=== PATIENT | male | born 1990 | race Caucasian/White ===

== ENCOUNTER 2021-07-26 13:05 | Inpatient (IN) | payer MEDICAID, OTHER ==
[~2021-07-26] VITALS: Ht 182.9 cm; Wt 95.8 kg
[2021-07-26] MEDS ORDERED: ONDANSETRON HCL 4 MG/2 ML VIAL IV ONE ×2 (13:15→17:45)
[2021-07-26] MEDS ORDERED: MORPHINE SULFATE 4 MG/ML SYR/VIAL IV ONE ×2 (13:15→17:45)
[2021-07-26] MEDS ORDERED: PANTOPRAZOLE 40 MG/10 ML VIAL INJ IV ONE (13:15)
[2021-07-26] MEDS ORDERED: SODIUM CHLORIDE 0.9% 1,000 ML IVB ONE (13:15)
[2021-07-26 14:06] LABS: Basophils # (auto) 0 10 ^3/uL (0-0.2); Basophils % (auto) 0.3 % (0.0-2.0); Eosinophils # (auto) 0.2 10 ^3/uL (0-0.8); Eosinophils % (auto) 2.3 % (0.0-7.0); Hematocrit 49.1 % (41.0-53.0); Hemoglobin 16.5 g/dL (13.5-17.5); Lymphocytes # (auto) 1.9 10 ^3/uL (0.4-5.4); Lymphocytes % (auto) 18.1 % (10.0-50.0); Mean Corpuscular Hemoglobin 30.5 pg (28.0-32.0); Mean Corpuscular Hgb Conc. 33.7 g/dL (32.0-36.0); Mean Corpuscular Volume 90.4 fL (80.0-100.0); Monocytes # (auto) 0.7 10 ^3/uL (0-1.3); Neutrophils # (auto) 7.7 10 ^3/uL (1.6-8.6); Neutrophils % (auto) 72.3 % (37.0-80.0); Nucleated Red Blood Cells % 0.2 %; Red Blood Cells 5.43 10^6/uL (4.5-5.90); Red Cell Distribution Width 13.9 % (11.8-14.3); White Blood Cell 10.6 10^3/uL (4.4-10.8)
[2021-07-26 14:42] LABS: Amylase 70 U/L (25-115); Blood Alcohol < 3.0 mg/dL (0-5); Lipase 521 U/L (73-393)
[2021-07-26 15:12] LABS: Sodium 136 mmol/L (136-145)
[2021-07-26 15:13] LABS: Alanine Aminotransferase 51 U/L (16-61); Albumin 4.2 g/dL (3.4-5.0); Alkaline Phosphatase 105 U/L (45-117); Anion Gap 9 (5-15); Aspartate Aminotransferase 35 U/L (15-37); BUN/Creatinine Ratio 9.8; Bilirubin, Total 0.8 mg/dL (0.2-1.0); Blood Urea Nitrogen 10 mg/dL (7-18); Calcium 9.7 mg/dL (8.5-10.1); Carbon Dioxide 24 mmol/L (21-32); Chloride 103 mmol/L (98-107); GFR African American 109 mL/min; GFR Non-African American 90 mL/min; Glucose 112 mg/dL (74-106); Potassium 4.6 mmol/L (3.5-5.1); Total Protein 8.1 g/dL (6.4-8.2)
[2021-07-26 15:17] LABS: Urine Bacteria FEW /hpf (None Seen); Urine Blood Negative /uL (Negative); Urine Hyaline Cast FEW /lpf (0 - 2); Urine Mucus FEW (None Seen); Urine Specific Gravity 1.018 (1.001-1.035); Urine WBC 5 /hpf (0 - 3)
[2021-07-26] MEDS ORDERED: ACETAMINOPHEN 325 MG TAB PO PRN (18:15)
[2021-07-26] MEDS ORDERED: DOCUSATE SOD 100 MG CAP PO PRN (18:15)
[2021-07-26] MEDS ORDERED: SODIUM CHLORIDE 0.9% 1,000 ML IV SCH (18:15)
[2021-07-26] MEDS ORDERED: LORazepam 2MG/ML-1ML VIAL IV PRN (18:45)
[2021-07-26] MEDS ORDERED: THIAMINE 100mg/ml INJ (200mg/2ml VIAL) IV ONE (18:45)
[2021-07-26] MEDS ORDERED: FOLIC ACID 1 MG, MULTIPLE VITAMIN 10 ML, MAGNESIUM SULF SDV 50% 8 MEQ, THIAMINE INJ 100... INJ ONE ×5 (19:15)
[2021-07-26] MEDS: ONDANSETRON HCL 4 MG/2 ML VIAL IV PRN (20:28)
[2021-07-26] MEDS: MORPHINE SULFATE INJECTION 2 MG/ML SYRG IV PRN (22:44)
[2021-07-27] MEDS: SODIUM CHLORIDE 0.9% 1,000 ML IV SCH ×2 (00:45→09:00)
[2021-07-27] MEDS: MORPHINE SULFATE INJECTION 2 MG/ML SYRG IV PRN ×5 (03:35→21:54)
[2021-07-27 05:00] VITALS: BP 147/99
[2021-07-27 05:14] LABS: Basophils # (auto) 0 10 ^3/uL (0-0.2); Basophils % (auto) 0.3 % (0.0-2.0); Eosinophils # (auto) 0.2 10 ^3/uL (0-0.8); Eosinophils % (auto) 1.6 % (0.0-7.0); Hematocrit 40.9 % (41.0-53.0); Hemoglobin 14.3 g/dL (13.5-17.5); Lymphocytes # (auto) 1.8 10 ^3/uL (0.4-5.4); Lymphocytes % (auto) 18.5 % (10.0-50.0); Mean Corpuscular Hemoglobin 31.4 pg (28.0-32.0); Mean Corpuscular Volume 89.6 fL (80.0-100.0); Monocytes # (auto) 0.9 10 ^3/uL (0-1.3); Neutrophils # (auto) 6.9 10 ^3/uL (1.6-8.6); Neutrophils % (auto) 70.6 % (37.0-80.0); Nucleated Red Blood Cells % 0.1 %; Red Blood Cells 4.56 10^6/uL (4.5-5.90); Red Cell Distribution Width 13.5 % (11.8-14.3); White Blood Cell 9.7 10^3/uL (4.4-10.8)
[2021-07-27 05:33] LABS: Potassium 4.1 mmol/L (3.5-5.1)
[2021-07-27 05:38] LABS: Albumin 3.5 g/dL (3.4-5.0); BUN/Creatinine Ratio 10.1; Bilirubin, Total 0.9 mg/dL (0.2-1.0); Calcium 8.4 mg/dL (8.5-10.1); Total Protein 6.8 g/dL (6.4-8.2)
[2021-07-27 09:05] VITALS: BP 145/91
[2021-07-27] MEDS: FOLIC ACID 1 MG TAB PO SCH (10:00)
[2021-07-27] MEDS: THIAMINE HCL 100 MG TAB PO SCH (10:00)
[2021-07-27] MEDS: ENOXAPARIN SOD 40 MG/0.4 ML SYRINGE SC SCH (10:00)
[2021-07-27] MEDS: HYDROcodone-ACET 5/325MG TAB PO PRN (12:09)
[2021-07-27 12:37] VITALS: BP 150/98
[2021-07-27] MEDS: LACTATED RINGER'S 1,000 ML IV SCH (14:00)
[2021-07-27] MEDS ORDERED: hydrALAZINE HCL 20 MG/ML VL IV PRN (14:00)
[2021-07-27 16:49] VITALS: BP 143/91
[2021-07-27] MEDS: FAMOTIDINE (10MG/ML) 2ML VL IV SCH (21:42)
[2021-07-27 22:00] VITALS: BP 119/69
[2021-07-28] MEDS: MORPHINE SULFATE INJECTION 2 MG/ML SYRG IV PRN ×2 (01:54→17:48)
[2021-07-28 05:00] VITALS: BP 144/98
[2021-07-28 09:00] VITALS: BP_SYST 101; BP_SYST 147; BP_DIAS 52; BP_DIAS 88
[2021-07-28 09:01] LABS: Magnesium 2.5 mg/dL (1.6-2.6); Potassium 4.5 mmol/L (3.5-5.1)
[2021-07-28] MEDS: ENOXAPARIN SOD 40 MG/0.4 ML SYRINGE SC SCH (10:00)
[2021-07-28] MEDS: MULTIPLE VITAMINS W/ MINERALS TAB PO SCH (10:00)
[2021-07-28] MEDS: FOLIC ACID 1 MG TAB PO SCH (10:00)
[2021-07-28] MEDS: FAMOTIDINE (10MG/ML) 2ML VL IV SCH ×2 (10:00→22:13)
[2021-07-28] MEDS: THIAMINE HCL 100 MG TAB PO SCH (10:00)
[2021-07-28] MEDS: HYDROcodone-ACET 5/325MG TAB PO PRN ×2 (10:48→23:57)
[2021-07-28 12:49] VITALS: BP 121/95
[2021-07-28] MEDS: LACTATED RINGER'S 1,000 ML IV SCH ×2 (14:00)
[2021-07-28 16:51] VITALS: BP 144/90
[2021-07-28 22:00] VITALS: BP 135/75
[2021-07-29 05:00] VITALS: BP 141/87
[2021-07-29] MEDS: LACTATED RINGER'S 1,000 ML IV SCH (05:35)
[2021-07-29 09:00] VITALS: BP 145/95
[2021-07-29] MEDS ORDERED: ERGOCALCIFEROL 50,000 UNIT(1.25MG) CAP PO SCH (09:45)
[2021-07-29] MEDS ORDERED: CHOLECALCIFEROL (VITD3) 2,000 UNIT CAP/TAB PO SCH (10:00)
[2021-07-29] MEDS: THIAMINE HCL 100 MG TAB PO SCH (10:00)
[2021-07-29] MEDS: FOLIC ACID 1 MG TAB PO SCH (10:00)
[2021-07-29] MEDS: ENOXAPARIN SOD 40 MG/0.4 ML SYRINGE SC SCH (10:00)
[2021-07-29] MEDS: FAMOTIDINE (10MG/ML) 2ML VL IV SCH (10:00)
[2021-07-29] MEDS: MULTIPLE VITAMINS W/ MINERALS TAB PO SCH (10:00)
[2021-07-29] MEDS: MORPHINE SULFATE INJECTION 2 MG/ML SYRG IV PRN (10:10)
[2021-07-29] MEDS: ONDANSETRON HCL 4 MG/2 ML VIAL IV PRN (10:10)
[2021-07-29] MEDS ORDERED: ERGOCALCIFEROL 50,000 UNIT(1.25MG) CAP PO ONE (11:30)
[2021-07-29] MEDS ORDERED: CHOL20007 PO (11:33)
[2021-07-29 13:00] VITALS: BP 168/91
[2021-07-29 16:29] VITALS: BP_SYST 168
[2021-07-29 16:51] VITALS: BP 169/101
[2021-07-29 17:50] VITALS: BP 139/87
== END 2021-07-29 19:45 | disposition home or self-care (01) | DRG 282 ==
LOC: ER 13:05 → OVERFLOW 18:13 → WEST WING 20:35
PROVIDERS: ADMIT Internal Medicine; ATTEND Internal Medicine
DX: K85.20 Alcohol induced acute pancreatitis without necrosis or infection (principal); E55.9 Vitamin D deficiency, unspecified; E66.9 Obesity, unspecified; F10.10 Alcohol abuse, uncomplicated; I10 Essential (primary) hypertension; Z20.822 Contact with and (suspected) exposure to COVID-19; Z68.28 Body mass index [BMI] 28.0-28.9, adult; Z71.41 Alcohol abuse counseling and surveillance of alcoholic
CPT/HCPCS: 36415; 74176; 80053; 80061; 80320; 81001; 82150; 82306; 83036; 83690; 83735; 84132; 84443; 84478; 84484; 85025; 87086; 87426; 96361; 96365; 96375; 96376; C9113; G0378; J2405; J3490

== ENCOUNTER 2021-09-01 04:07 | Inpatient (IN) | payer MEDICAID ==
[~2021-09-01] VITALS: Ht 185.4 cm; Wt 196.0 kg
[2021-09-01] MEDS ORDERED: ONDANSETRON HCL 4 MG/2 ML VIAL IV ONE ×2 (05:30→09:45)
[2021-09-01] MEDS ORDERED: HYDROmorphone HCL 2 MG/ML VL IV ONE ×2 (05:30→09:45)
[2021-09-01 05:41] LABS: Basophils # (auto) 0 10 ^3/uL (0-0.2); Basophils % (auto) 0.3 % (0.0-2.0); Eosinophils # (auto) 0.2 10 ^3/uL (0-0.8); Eosinophils % (auto) 2.2 % (0.0-7.0); Hematocrit 42.8 % (41.0-53.0); Hemoglobin 14.9 g/dL (13.5-17.5); Lymphocytes # (auto) 2.5 10 ^3/uL (0.4-5.4); Lymphocytes % (auto) 28.3 % (10.0-50.0); Mean Corpuscular Hemoglobin 30.7 pg (28.0-32.0); Mean Corpuscular Hgb Conc. 34.9 g/dL (32.0-36.0); Mean Corpuscular Volume 87.9 fL (80.0-100.0); Monocytes # (auto) 0.8 10 ^3/uL (0-1.3); Monocytes % (auto) 9.2 % (0.0-12.0); Neutrophils # (auto) 5.2 10 ^3/uL (1.6-8.6); Nucleated Red Blood Cells % 0.2 %; Red Blood Cells 4.86 10^6/uL (4.5-5.90); Red Cell Distribution Width 13.8 % (11.8-14.3); White Blood Cell 8.8 10^3/uL (4.4-10.8)
[2021-09-01 06:02] LABS: Potassium 4.5 mmol/L (3.5-5.1)
[2021-09-01 06:07] LABS: Albumin 3.8 g/dL (3.4-5.0); Calcium 9.3 mg/dL (8.5-10.1); Magnesium 2.6 mg/dL (1.6-2.6)
[2021-09-01 06:10] LABS: Bilirubin, Total 0.9 mg/dL (0.2-1.0); Total Protein 7.7 g/dL (6.4-8.2)
[2021-09-01 06:15] LABS: Urine Bacteria NONE SEEN /hpf (None Seen); Urine Blood Negative /uL (Negative); Urine Specific Gravity 1.017 (1.001-1.035); Urine WBC 1 /hpf (0 - 3)
[2021-09-01] MEDS ORDERED: SODIUM CHLORIDE 0.9% 1,000 ML IVB ONE (13:00)
[2021-09-01] MEDS ORDERED: ONDANSETRON HCL 4 MG/2 ML VIAL IV PRN (14:30)
[2021-09-01 14:58] LABS: Cholesterol 200 mg/dL (< 200)
[2021-09-01] MEDS ORDERED: SODIUM CHLORIDE 0.9% 2,000 ML IV ONE (15:00)
[2021-09-01] MEDS ORDERED: MORPHINE SULFATE INJECTION 2 MG/ML SYRG IV PRN (15:00)
[2021-09-01] MEDS ORDERED: LORazepam 2MG/ML-1ML VIAL IV PRN (15:00)
[2021-09-01 15:01] LABS: HDL Cholesterol 51 mg/dL (40-59); LDL Cholesterol 112 mg/dL (< 100); Triglycerides 277 mg/dL (< 150)
[2021-09-01 15:03] LABS: Alcohol, Urine < 3.0 mg/dL (0-10); Amphetamine Screen, Urine NEGATIVE (NEGATIVE); Barbiturate Scree,Urine NEGATIVE (NEGATIVE); Benzodiazephine Screen, Urine NEGATIVE (NEGATIVE); Cannabinoid Screen, Urine NEGATIVE (NEGATIVE); Cocaine Screen, Urine NEGATIVE (NEGATIVE); Opiate Scree,Urine NEGATIVE (NEGATIVE); Phencyclidine Screen, Urine NEGATIVE (NEGATIVE)
[2021-09-01 15:20] LABS: INR 1.03 (0.9-1.15)
[2021-09-01] MEDS: MORPHINE SULFATE 4 MG/ML SYR/VIAL IV PRN ×3 (15:46→22:37)
[2021-09-01] MEDS: FOLIC ACID 1 MG, MULTIPLE VITAMIN 10 ML, THIAMINE INJ 100 MG in SODIUM CHLORIDE 0.9% 1,... INJ SCH (16:16)
[2021-09-01 18:01] VITALS: BP 153/96
[2021-09-01] MEDS ORDERED: hydrALAZINE HCL 20 MG/ML VL IV PRN (18:30)
[2021-09-01] MEDS ORDERED: CHOL20007 PO (18:36)
[2021-09-01 22:00] VITALS: BP 144/94
[2021-09-02] MEDS: MORPHINE SULFATE 4 MG/ML SYR/VIAL IV PRN ×2 (02:31→07:30)
[2021-09-02 05:00] VITALS: BP 138/96
[2021-09-02 05:15] LABS: Basophils # (auto) 0 10 ^3/uL (0-0.2); Basophils % (auto) 0.2 % (0.0-2.0); Eosinophils # (auto) 0.1 10 ^3/uL (0-0.8); Eosinophils % (auto) 0.8 % (0.0-7.0); Hematocrit 40.5 % (41.0-53.0); Hemoglobin 14.3 g/dL (13.5-17.5); Lymphocytes # (auto) 1.3 10 ^3/uL (0.4-5.4); Lymphocytes % (auto) 12.5 % (10.0-50.0); Mean Corpuscular Hemoglobin 31.1 pg (28.0-32.0); Mean Corpuscular Hgb Conc. 35.3 g/dL (32.0-36.0); Mean Corpuscular Volume 88.1 fL (80.0-100.0); Monocytes # (auto) 0.7 10 ^3/uL (0-1.3); Monocytes % (auto) 6.8 % (0.0-12.0); Neutrophils # (auto) 8.5 10 ^3/uL (1.6-8.6); Neutrophils % (auto) 79.7 % (37.0-80.0); Nucleated Red Blood Cells % 0.1 %; Red Cell Distribution Width 13.7 % (11.8-14.3); White Blood Cell 10.6 10^3/uL (4.4-10.8)
[2021-09-02 05:30] LABS: Albumin 3.5 g/dL (3.4-5.0); Calcium 8.8 mg/dL (8.5-10.1); Potassium 4.5 mmol/L (3.5-5.1)
[2021-09-02 05:37] LABS: Bilirubin, Total 0.8 mg/dL (0.2-1.0); Total Protein 7.1 g/dL (6.4-8.2)
[2021-09-02 06:38] LABS: BUN/Creatinine Ratio 8.1
[2021-09-02 09:00] VITALS: BP 134/82
[2021-09-02] MEDS ORDERED: PANTOPRAZOLE 40 MG/10 ML VIAL INJ IV ONE (11:45)
[2021-09-02] MEDS: SODIUM CHLORIDE 0.9% 1,000 ML IV SCH ×2 (11:45→22:18)
[2021-09-02] MEDS: HYDROcodone-ACET 5/325MG TAB PO PRN ×2 (12:14→18:07)
[2021-09-02 13:00] VITALS: BP 130/79
[2021-09-02] MEDS: FOLIC ACID 1 MG, MULTIPLE VITAMIN 10 ML, THIAMINE INJ 100 MG in SODIUM CHLORIDE 0.9% 1,... INJ SCH (13:41)
[2021-09-02 16:55] VITALS: BP 119/72
[2021-09-02 21:30] VITALS: BP 115/73
[2021-09-03] MEDS: HYDROcodone-ACET 5/325MG TAB PO PRN ×2 (00:59→06:16)
[2021-09-03 05:00] VITALS: BP 116/72
[2021-09-03] MEDS: SODIUM CHLORIDE 0.9% 1,000 ML IV SCH ×4 (06:49→21:59)
[2021-09-03 09:00] VITALS: BP 125/67
[2021-09-03] MEDS: PANTOPRAZOLE 40 MG/10 ML VIAL INJ IV SCH (10:13)
[2021-09-03] MEDS: FOLIC ACID 1 MG, MULTIPLE VITAMIN 10 ML, THIAMINE INJ 100 MG in SODIUM CHLORIDE 0.9% 1,... INJ SCH (12:00)
[2021-09-03 13:00] VITALS: BP 128/81
[2021-09-03 17:00] VITALS: BP 129/72
[2021-09-03 21:32] VITALS: BP 113/82
[2021-09-04] MEDS: SODIUM CHLORIDE 0.9% 1,000 ML IV SCH ×2 (03:45→11:48)
[2021-09-04 04:50] VITALS: BP 117/70
[2021-09-04] MEDS ORDERED: THIA100T5 PO (08:26)
[2021-09-04] MEDS ORDERED: PANT40T PO (08:26)
[2021-09-04] MEDS ORDERED: FOLI1TAB6 PO (08:26)
[2021-09-04] MEDS: PANTOPRAZOLE 40 MG/10 ML VIAL INJ IV SCH (08:58)
[2021-09-04 09:00] VITALS: BP 133/77
[2021-09-04 09:02] VITALS: BP 133/77
== END 2021-09-04 12:38 | disposition home or self-care (01) | DRG 282 ==
LOC: ER 04:07 → OVERFLOW 14:27 → CENTRAL 17:40
PROVIDERS: ADMIT Registered Nurse; ATTEND Family Medicine
DX: K85.20 Alcohol induced acute pancreatitis without necrosis or infection (principal); E86.0 Dehydration; F10.10 Alcohol abuse, uncomplicated; F17.210 Nicotine dependence, cigarettes, uncomplicated; M47.816 Spondylosis without myelopathy or radiculopathy, lumbar region; Z82.49 Family history of ischemic heart disease and other diseases of the circulatory system; Z20.822 Contact with and (suspected) exposure to COVID-19
CPT/HCPCS: 36415; 74176; 80053; 80061; 80307; 81001; 82150; 83690; 83735; 85025; 85610; 96361; 96374; 96375; 96376; C9113; G0378; J2405

== ENCOUNTER 2022-03-30 02:47 | Inpatient (IN) | payer MEDICAID ==
[~2022-03-30] VITALS: Ht 185.4 cm; Wt 103.5 kg
[~2022-03-30 02:47] MED LIST: CHOL20007 PO; FOLI1TAB6 PO; PANT40T PO; THIA100T5 PO
[2022-03-30 03:34] LABS: Basophils # (auto) 0 10 ^3/uL (0-0.2); Basophils % (auto) 0.3 % (0.0-2.0); Eosinophils # (auto) 0.2 10 ^3/uL (0-0.8); Hematocrit 46.9 % (41.0-53.0); Hemoglobin 15.7 g/dL (13.5-17.5); Lymphocytes # (auto) 2.4 10 ^3/uL (0.4-5.4); Lymphocytes % (auto) 21.1 % (10.0-50.0); Mean Corpuscular Hemoglobin 30.5 pg (28.0-32.0); Mean Corpuscular Hgb Conc. 33.5 g/dL (32.0-36.0); Mean Corpuscular Volume 90.9 fL (80.0-100.0); Monocytes % (auto) 9.1 % (0.0-12.0); Neutrophils # (auto) 7.7 10 ^3/uL (1.6-8.6); Neutrophils % (auto) 67.5 % (37.0-80.0); Nucleated Red Blood Cells % 0.1 %; Red Blood Cells 5.15 10^6/uL (4.5-5.90); Red Cell Distribution Width 13.9 % (11.8-14.3); White Blood Cell 11.4 10^3/uL (4.4-10.8)
[2022-03-30 03:39] LABS: Albumin 4.2 g/dL (3.4-5.0); BUN/Creatinine Ratio 14.1; Calcium 9.3 mg/dL (8.5-10.1); Potassium 3.9 mmol/L (3.5-5.1)
[2022-03-30 03:42] LABS: Bilirubin, Total 0.7 mg/dL (0.2-1.0); Total Protein 7.9 g/dL (6.4-8.2)
[2022-03-30] MEDS ORDERED: SODIUM CHLORIDE 0.9% 3,000 ML IV ONE (05:30)
[2022-03-30] MEDS ORDERED: ONDANSETRON HCL 4 MG/2 ML VIAL IV ONE (05:30)
[2022-03-30] MEDS ORDERED: HYDROmorphone HCL 2 MG/ML VL/or syr IV ONE (05:30)
[2022-03-30] MEDS ORDERED: ACETAMINOPHEN 325 MG TAB PO PRN (09:30)
[2022-03-30] MEDS: SODIUM CHLORIDE 0.9% 1,000 ML IV SCH ×3 (09:49→20:04)
[2022-03-30] MEDS: PANTOPRAZOLE 40 MG/10 ML VIAL INJ IV SCH (09:49)
[2022-03-30 10:27] LABS: Urine Bacteria NONE SEEN /hpf (None Seen); Urine Mucus FEW (None Seen); Urine WBC 1 /hpf (0 - 3)
[2022-03-30 10:30] LABS: Urine Blood Trace /uL (Negative); Urine Specific Gravity 1.015 (1.001-1.035)
[2022-03-30 10:46] LABS: Alcohol, Urine < 3.0 mg/dL (0-10); Amphetamine Screen, Urine NEGATIVE (NEGATIVE); Barbiturate Scree,Urine NEGATIVE (NEGATIVE); Benzodiazephine Screen, Urine NEGATIVE (NEGATIVE); Cannabinoid Screen, Urine NEGATIVE (NEGATIVE); Cocaine Screen, Urine NEGATIVE (NEGATIVE); Opiate Scree,Urine NEGATIVE (NEGATIVE); Phencyclidine Screen, Urine NEGATIVE (NEGATIVE)
[2022-03-30] MEDS: HYDROmorphone HCL 2 MG/ML VL/or syr IV PRN ×3 (12:50→21:55)
[2022-03-30 17:00] VITALS: BP 144/88
[2022-03-30 20:00] VITALS: BP 137/76
[2022-03-30 22:00] VITALS: BP 135/76
[2022-03-31] MEDS: HYDROmorphone HCL 2 MG/ML VL/or syr IV PRN ×4 (02:02→20:29)
[2022-03-31 05:00] VITALS: BP 135/93
[2022-03-31] MEDS: SODIUM CHLORIDE 0.9% 1,000 ML IV SCH ×2 (05:53→18:50)
[2022-03-31 06:29] LABS: Basophils # (auto) 0 10 ^3/uL (0-0.2); Basophils % (auto) 0.3 % (0.0-2.0); Eosinophils # (auto) 0.1 10 ^3/uL (0-0.8); Eosinophils % (auto) 0.7 % (0.0-7.0); Hematocrit 42.8 % (41.0-53.0); Lymphocytes # (auto) 1.4 10 ^3/uL (0.4-5.4); Lymphocytes % (auto) 12.6 % (10.0-50.0); Mean Corpuscular Hemoglobin 31.6 pg (28.0-32.0); Mean Corpuscular Hgb Conc. 34.9 g/dL (32.0-36.0); Mean Corpuscular Volume 90.4 fL (80.0-100.0); Monocytes # (auto) 1.1 10 ^3/uL (0-1.3); Monocytes % (auto) 9.6 % (0.0-12.0); Neutrophils # (auto) 8.7 10 ^3/uL (1.6-8.6); Neutrophils % (auto) 76.8 % (37.0-80.0); Red Blood Cells 4.74 10^6/uL (4.5-5.90); Red Cell Distribution Width 13.7 % (11.8-14.3); White Blood Cell 11.3 10^3/uL (4.4-10.8)
[2022-03-31 06:49] LABS: Potassium 4.4 mmol/L (3.5-5.1)
[2022-03-31 07:01] LABS: Albumin 3.7 g/dL (3.4-5.0); Bilirubin, Total 0.8 mg/dL (0.2-1.0); Calcium 8.7 mg/dL (8.5-10.1); Total Protein 7.1 g/dL (6.4-8.2)
[2022-03-31 09:00] VITALS: BP 143/83
[2022-03-31] MEDS: PANTOPRAZOLE 40 MG/10 ML VIAL INJ IV SCH (10:35)
[2022-03-31 13:00] VITALS: BP 141/91
[2022-03-31 17:00] VITALS: BP 130/83
[2022-03-31 20:00] VITALS: BP 136/82
[2022-03-31 22:00] VITALS: BP 136/82
[2022-04-01] MEDS: SODIUM CHLORIDE 0.9% 1,000 ML IV SCH ×4 (01:54→20:53)
[2022-04-01] MEDS: HYDROmorphone HCL 2 MG/ML VL/or syr IV PRN ×3 (04:32→20:50)
[2022-04-01 05:00] VITALS: BP 124/87
[2022-04-01 08:00] VITALS: BP 126/78
[2022-04-01 09:26] VITALS: BP 119/71
[2022-04-01 11:34] LABS: Basophils # (auto) 0 10 ^3/uL (0-0.2); Basophils % (auto) 0.4 % (0.0-2.0); Eosinophils # (auto) 0.2 10 ^3/uL (0-0.8); Eosinophils % (auto) 3.4 % (0.0-7.0); Hematocrit 42.1 % (41.0-53.0); Lymphocytes # (auto) 1.5 10 ^3/uL (0.4-5.4); Lymphocytes % (auto) 20.3 % (10.0-50.0); Mean Corpuscular Hemoglobin 30.7 pg (28.0-32.0); Mean Corpuscular Hgb Conc. 33.2 g/dL (32.0-36.0); Mean Corpuscular Volume 92.5 fL (80.0-100.0); Monocytes # (auto) 0.9 10 ^3/uL (0-1.3); Monocytes % (auto) 12.3 % (0.0-12.0); Neutrophils # (auto) 4.7 10 ^3/uL (1.6-8.6); Neutrophils % (auto) 63.6 % (37.0-80.0); Nucleated Red Blood Cells % 0.1 %; Red Blood Cells 4.55 10^6/uL (4.5-5.90); Red Cell Distribution Width 13.6 % (11.8-14.3); White Blood Cell 7.4 10^3/uL (4.4-10.8)
[2022-04-01 11:53] LABS: Albumin 3.3 g/dL (3.4-5.0); BUN/Creatinine Ratio 9.9; Calcium 8.9 mg/dL (8.5-10.1); Potassium 4.3 mmol/L (3.5-5.1)
[2022-04-01 11:56] LABS: Bilirubin, Total 0.8 mg/dL (0.2-1.0); Total Protein 6.8 g/dL (6.4-8.2)
[2022-04-01 13:00] VITALS: BP 128/88
[2022-04-01] MEDS ORDERED: POLYETHYLENE GLYCOL 17 GM PWDR PO PRN (14:15)
[2022-04-01] MEDS ORDERED: SENNA 8.6 MG TAB PO PRN (14:15)
[2022-04-01 16:44] VITALS: BP 118/81
[2022-04-01] MEDS: SENNA 8.6 MG TAB PO SCH ×2 (21:28→22:00)
[2022-04-01 22:00] VITALS: BP 120/84
[2022-04-02] MEDS: SODIUM CHLORIDE 0.9% 1,000 ML IV SCH ×5 (01:45→21:45)
[2022-04-02] MEDS: HYDROmorphone HCL 2 MG/ML VL/or syr IV PRN ×2 (03:05→12:21)
[2022-04-02 05:00] VITALS: BP 131/96
[2022-04-02 08:49] VITALS: BP 115/74
[2022-04-02 12:49] VITALS: BP 128/86
[2022-04-02 13:33] LABS: Lipase 527 U/L (73-393)
[2022-04-02 13:37] LABS: Cholesterol 188 mg/dL (< 200); HDL Cholesterol 56 mg/dL (40-59); LDL Cholesterol 109 mg/dL (< 100); Triglycerides 130 mg/dL (< 150)
[2022-04-02 16:40] VITALS: BP 118/77
[2022-04-02 22:00] VITALS: BP 126/76
[2022-04-02] MEDS: SENNA 8.6 MG TAB PO SCH (22:02)
[2022-04-03] MEDS: SODIUM CHLORIDE 0.9% 1,000 ML IV SCH ×5 (02:06→22:45)
[2022-04-03] MEDS: HYDROmorphone HCL 2 MG/ML VL/or syr IV PRN ×4 (03:40→21:40)
[2022-04-03 04:54] VITALS: BP 126/85
[2022-04-03 08:40] VITALS: BP 114/82
[2022-04-03 13:00] VITALS: BP 129/88
[2022-04-03 16:48] VITALS: BP 124/85
[2022-04-03] MEDS: ONDANSETRON HCL 4 MG/2 ML VIAL IV PRN (19:11)
[2022-04-03] MEDS: SENNA 8.6 MG TAB PO SCH (21:40)
[2022-04-03 22:00] VITALS: BP 136/84
[2022-04-04] MEDS: HYDROmorphone HCL 2 MG/ML VL/or syr IV PRN ×3 (02:24→21:53)
[2022-04-04] MEDS: SODIUM CHLORIDE 0.9% 1,000 ML IV SCH ×5 (04:40→21:55)
[2022-04-04 05:00] VITALS: BP 138/97
[2022-04-04 08:30] VITALS: BP 119/76
[2022-04-04] MEDS: ONDANSETRON HCL 4 MG/2 ML VIAL IV PRN (09:20)
[2022-04-04 12:30] VITALS: BP 124/77
[2022-04-04 17:00] VITALS: BP 125/84
[2022-04-04] MEDS: SENNA 8.6 MG TAB PO SCH (21:51)
[2022-04-04 22:00] VITALS: BP 131/95
[2022-04-05] MEDS: SODIUM CHLORIDE 0.9% 1,000 ML IV SCH ×3 (03:44→14:45)
[2022-04-05 05:00] VITALS: BP 132/82
[2022-04-05] MEDS: HYDROmorphone HCL 2 MG/ML VL/or syr IV PRN (05:16)
[2022-04-05 08:53] VITALS: BP 151/84
[2022-04-05 10:18] LABS: Basophils # (auto) 0 10 ^3/uL (0-0.2); Basophils % (auto) 0.5 % (0.0-2.0); Eosinophils # (auto) 0.3 10 ^3/uL (0-0.8); Eosinophils % (auto) 4.5 % (0.0-7.0); Hematocrit 41.9 % (41.0-53.0); Lymphocytes # (auto) 2.6 10 ^3/uL (0.4-5.4); Lymphocytes % (auto) 37.9 % (10.0-50.0); Mean Corpuscular Hemoglobin 30.7 pg (28.0-32.0); Mean Corpuscular Hgb Conc. 33.3 g/dL (32.0-36.0); Mean Corpuscular Volume 92.1 fL (80.0-100.0); Monocytes # (auto) 0.8 10 ^3/uL (0-1.3); Monocytes % (auto) 11.3 % (0.0-12.0); Neutrophils # (auto) 3.2 10 ^3/uL (1.6-8.6); Neutrophils % (auto) 45.8 % (37.0-80.0); Red Blood Cells 4.55 10^6/uL (4.5-5.90); Red Cell Distribution Width 13.1 % (11.8-14.3); White Blood Cell 6.9 10^3/uL (4.4-10.8)
[2022-04-05 10:39] LABS: Albumin 3.4 g/dL (3.4-5.0); Bilirubin, Total 0.5 mg/dL (0.2-1.0); Calcium 9.1 mg/dL (8.5-10.1); Potassium 3.7 mmol/L (3.5-5.1); Total Protein 7.3 g/dL (6.4-8.2)
[2022-04-05 12:49] VITALS: BP 110/69
[2022-04-05 16:55] VITALS: BP 134/86
[2022-04-05 18:44] VITALS: BP 134/86
== END 2022-04-05 21:00 | disposition home or self-care (01) | DRG 282 ==
LOC: ER 02:47 → OVERFLOW 09:25 → WEST WING 11:37
PROVIDERS: ADMIT Nurse Practitioner Family; ATTEND Student in an Organized Health Care Education/Training Program
DX: K85.20 Alcohol induced acute pancreatitis without necrosis or infection (principal); F10.10 Alcohol abuse, uncomplicated; I10 Essential (primary) hypertension; Z20.822 Contact with and (suspected) exposure to COVID-19; Y90.9 Presence of alcohol in blood, level not specified; K86.1 Other chronic pancreatitis
CPT/HCPCS: 36415; 74176; 80053; 80061; 80307; 80320; 81001; 83605; 83690; 85025; 86141; 87426; 96361; 96374; 96375; C9113; G0378; J2405

== ENCOUNTER 2022-06-13 22:33 | Inpatient (IN) | payer MEDICAID ==
[~2022-06-13] VITALS: Ht 185.4 cm; Wt 116.0 kg
[2022-06-13 23:18] LABS: Basophils # (auto) 0 10 ^3/uL (0-0.2); Basophils % (auto) 0.2 % (0.0-2.0); Eosinophils # (auto) 0.1 10 ^3/uL (0-0.8); Eosinophils % (auto) 0.5 % (0.0-7.0); Hemoglobin 15.7 g/dL (13.5-17.5); Lymphocytes # (auto) 1.8 10 ^3/uL (0.4-5.4); Mean Corpuscular Hemoglobin 29.7 pg (28.0-32.0); Mean Corpuscular Hgb Conc. 32.6 g/dL (32.0-36.0); Mean Corpuscular Volume 91.1 fL (80.0-100.0); Monocytes # (auto) 0.9 10 ^3/uL (0-1.3); Monocytes % (auto) 7.6 % (0.0-12.0); Neutrophils # (auto) 9.3 10 ^3/uL (1.6-8.6); Neutrophils % (auto) 76.7 % (37.0-80.0); Nucleated Red Blood Cells % 0.1 %; Red Blood Cells 5.27 10^6/uL (4.5-5.90); Red Cell Distribution Width 13.9 % (11.8-14.3); White Blood Cell 12.2 10^3/uL (4.4-10.8)
[2022-06-13 23:40] LABS: Albumin 4.3 g/dL (3.4-5.0); BUN/Creatinine Ratio 14.3; Calcium 9.6 mg/dL (8.5-10.1); Potassium 3.7 mmol/L (3.5-5.1)
[2022-06-13 23:43] LABS: Total Protein 8.5 g/dL (6.4-8.2)
[2022-06-14] MEDS ORDERED: SODIUM CHLORIDE 0.9% 1,000 ML IV ONE (05:00)
[2022-06-14] MEDS ORDERED: ONDANSETRON HCL 4 MG/2 ML VIAL IV ONE (05:00)
[2022-06-14] MEDS ORDERED: SODIUM CHLORIDE 0.9% 1,000 ML IV SCH (05:00)
[2022-06-14] MEDS ORDERED: HYDROmorphone HCL 2 MG/ML VL/or syr IV ONE (05:00)
[2022-06-14] MEDS: MORPHINE SULFATE INJ 2 MG/ml SYRG IV PRN ×2 (07:47→11:56)
[2022-06-14] MEDS ORDERED: PANTOPRAZOLE 40 MG/10 ML VIAL INJ IV SCH (10:00)
[2022-06-14] MEDS: SODIUM CHLORIDE 0.9% 1,000 ML IV SCH ×2 (11:58→23:19)
[2022-06-14 12:20] LABS: Basophils # (auto) 0 10 ^3/uL (0-0.2); Basophils % (auto) 0.2 % (0.0-2.0); Eosinophils # (auto) 0 10 ^3/uL (0-0.8); Eosinophils % (auto) 0.5 % (0.0-7.0); Hematocrit 43.4 % (41.0-53.0); Hemoglobin 14.4 g/dL (13.5-17.5); Lymphocytes # (auto) 1.2 10 ^3/uL (0.4-5.4); Lymphocytes % (auto) 11.6 % (10.0-50.0); Mean Corpuscular Hemoglobin 30.4 pg (28.0-32.0); Mean Corpuscular Hgb Conc. 33.2 g/dL (32.0-36.0); Mean Corpuscular Volume 91.4 fL (80.0-100.0); Monocytes # (auto) 0.9 10 ^3/uL (0-1.3); Monocytes % (auto) 9.3 % (0.0-12.0); Neutrophils # (auto) 7.9 10 ^3/uL (1.6-8.6); Neutrophils % (auto) 78.4 % (37.0-80.0); Nucleated Red Blood Cells % 0.1 %; Red Blood Cells 4.75 10^6/uL (4.5-5.90); Red Cell Distribution Width 13.4 % (11.8-14.3)
[2022-06-14 12:39] LABS: Albumin 3.7 g/dL (3.4-5.0); BUN/Creatinine Ratio 15.8
[2022-06-14 12:41] LABS: Total Protein 7.2 g/dL (6.4-8.2)
[2022-06-14] MEDS ORDERED: POLYETHYLENE GLYCOL 17 GM PWDR PO PRN (13:00)
[2022-06-14] MEDS ORDERED: SENNA 8.6 MG TAB PO PRN (13:00)
[2022-06-14] MEDS: HYDROmorphone HCL 2 MG/ML VL/or syr IV PRN ×3 (15:34→23:10)
[2022-06-14 17:58] VITALS: BP 150/102
[2022-06-14 20:00] VITALS: BP 144/98
[2022-06-14] MEDS: PANCREATIC ENZYMES 4200 UNIT CAP PO SCH (20:03)
[2022-06-14 22:00] VITALS: BP 144/98
[2022-06-14] MEDS: SENNA 8.6 MG TAB PO SCH (22:02)
[2022-06-15] VITALS (7 sets, daily range): BP systolic 134–153; BP diastolic 85–96
[2022-06-15] MEDS: HYDROmorphone HCL 2 MG/ML VL/or syr IV PRN ×5 (04:19→22:15)
[2022-06-15] MEDS: SODIUM CHLORIDE 0.9% 1,000 ML IV SCH ×3 (06:50→21:05)
[2022-06-15] MEDS: PANCREATIC ENZYMES 4200 UNIT CAP PO SCH ×3 (07:58→18:37)
[2022-06-15] MEDS: ONDANSETRON HCL 4 MG/2 ML VIAL IV PRN ×2 (08:10→13:41)
[2022-06-15] MEDS: POLYETHYLENE GLYCOL 17 GM PWDR PO SCH (08:10)
[2022-06-15 08:50] LABS: Basophils # (auto) 0 10 ^3/uL (0-0.2); Basophils % (auto) 0.2 % (0.0-2.0); Eosinophils # (auto) 0.1 10 ^3/uL (0-0.8); Eosinophils % (auto) 0.6 % (0.0-7.0); Hematocrit 43.2 % (41.0-53.0); Hemoglobin 14.3 g/dL (13.5-17.5); Lymphocytes # (auto) 1.3 10 ^3/uL (0.4-5.4); Lymphocytes % (auto) 13.9 % (10.0-50.0); Mean Corpuscular Hemoglobin 30.3 pg (28.0-32.0); Mean Corpuscular Hgb Conc. 33.1 g/dL (32.0-36.0); Mean Corpuscular Volume 91.7 fL (80.0-100.0); Monocytes # (auto) 0.8 10 ^3/uL (0-1.3); Monocytes % (auto) 8.7 % (0.0-12.0); Neutrophils # (auto) 7.2 10 ^3/uL (1.6-8.6); Neutrophils % (auto) 76.6 % (37.0-80.0); Red Blood Cells 4.71 10^6/uL (4.5-5.90); Red Cell Distribution Width 13.7 % (11.8-14.3); White Blood Cell 9.4 10^3/uL (4.4-10.8)
[2022-06-15 11:18] LABS: Albumin 3.6 g/dL (3.4-5.0); Calcium 9.2 mg/dL (8.5-10.1)
[2022-06-15 11:23] LABS: Bilirubin, Total 0.9 mg/dL (0.2-1.0)
[2022-06-15 18:07] LABS: Urine Bacteria NONE SEEN /hpf (None Seen); Urine Blood 1+ /uL (Negative); Urine Specific Gravity 1.012 (1.001-1.035); Urine WBC 1 /hpf (0 - 3)
[2022-06-15] MEDS: SENNA 8.6 MG TAB PO SCH (21:12)
[2022-06-16] MEDS: HYDROmorphone HCL 2 MG/ML VL/or syr IV PRN ×4 (01:42→17:58)
[2022-06-16] MEDS: SODIUM CHLORIDE 0.9% 1,000 ML IV SCH ×3 (02:44→17:59)
[2022-06-16 05:00] VITALS: BP 143/84
[2022-06-16 05:21] LABS: Basophils # (auto) 0 10 ^3/uL (0-0.2); Basophils % (auto) 0.2 % (0.0-2.0); Eosinophils # (auto) 0.2 10 ^3/uL (0-0.8); Eosinophils % (auto) 2.4 % (0.0-7.0); Hematocrit 41.1 % (41.0-53.0); Hemoglobin 13.6 g/dL (13.5-17.5); Lymphocytes # (auto) 1.9 10 ^3/uL (0.4-5.4); Lymphocytes % (auto) 23.4 % (10.0-50.0); Mean Corpuscular Hemoglobin 30.4 pg (28.0-32.0); Mean Corpuscular Hgb Conc. 33.1 g/dL (32.0-36.0); Mean Corpuscular Volume 91.9 fL (80.0-100.0); Monocytes # (auto) 0.9 10 ^3/uL (0-1.3); Monocytes % (auto) 11.3 % (0.0-12.0); Neutrophils # (auto) 5.2 10 ^3/uL (1.6-8.6); Neutrophils % (auto) 62.7 % (37.0-80.0); Red Blood Cells 4.48 10^6/uL (4.5-5.90); Red Cell Distribution Width 13.6 % (11.8-14.3); White Blood Cell 8.2 10^3/uL (4.4-10.8)
[2022-06-16 05:43] LABS: Albumin 3.3 g/dL (3.4-5.0); BUN/Creatinine Ratio 8.6; Calcium 8.8 mg/dL (8.5-10.1)
[2022-06-16 05:45] LABS: Bilirubin, Total 0.9 mg/dL (0.2-1.0); Total Protein 6.7 g/dL (6.4-8.2)
[2022-06-16 08:42] VITALS: BP 159/88
[2022-06-16] MEDS: POLYETHYLENE GLYCOL 17 GM PWDR PO SCH (08:57)
[2022-06-16] MEDS: PANCREATIC ENZYMES 4200 UNIT CAP PO SCH ×3 (08:58→17:58)
[2022-06-16 13:03] VITALS: BP 159/100
[2022-06-16] MEDS ORDERED: NALT50TA27 PO (15:01)
[2022-06-16 16:46] VITALS: BP 134/81
[2022-06-16] MEDS: SENNA 8.6 MG TAB PO SCH (21:23)
[2022-06-16 22:00] VITALS: BP 141/76
[2022-06-17] MEDS: SODIUM CHLORIDE 0.9% 1,000 ML IV SCH ×5 (00:12→23:45)
[2022-06-17] MEDS: HYDROmorphone HCL 2 MG/ML VL/or syr IV PRN ×5 (00:40→22:25)
[2022-06-17 05:00] VITALS: BP 157/96
[2022-06-17 07:10] LABS: Basophils # (auto) 0 10 ^3/uL (0-0.2); Basophils % (auto) 0.3 % (0.0-2.0); Eosinophils # (auto) 0.3 10 ^3/uL (0-0.8); Eosinophils % (auto) 3.2 % (0.0-7.0); Hematocrit 37.5 % (41.0-53.0); Hemoglobin 12.7 g/dL (13.5-17.5); Lymphocytes % (auto) 25.5 % (10.0-50.0); Mean Corpuscular Hgb Conc. 33.9 g/dL (32.0-36.0); Mean Corpuscular Volume 91.5 fL (80.0-100.0); Monocytes # (auto) 0.9 10 ^3/uL (0-1.3); Monocytes % (auto) 11.1 % (0.0-12.0); Neutrophils # (auto) 4.7 10 ^3/uL (1.6-8.6); Neutrophils % (auto) 59.9 % (37.0-80.0); Nucleated Red Blood Cells % 0.1 %; White Blood Cell 7.9 10^3/uL (4.4-10.8)
[2022-06-17 07:40] LABS: Calcium 8.8 mg/dL (8.5-10.1); Potassium 4.1 mmol/L (3.5-5.1)
[2022-06-17 07:42] LABS: BUN/Creatinine Ratio 14.9
[2022-06-17 07:45] LABS: Bilirubin, Total 0.8 mg/dL (0.2-1.0); Total Protein 6.3 g/dL (6.4-8.2)
[2022-06-17 08:38] VITALS: BP 142/92
[2022-06-17] MEDS: PANCREATIC ENZYMES 4200 UNIT CAP PO SCH ×2 (09:48→11:50)
[2022-06-17] MEDS: POLYETHYLENE GLYCOL 17 GM PWDR PO SCH (09:48)
[2022-06-17 13:00] VITALS: BP 138/82
[2022-06-17] MEDS ORDERED: HYDROcodone-ACET 5/325MG TAB PO PRN (15:45)
[2022-06-17] MEDS ORDERED: PANTOPRAZOLE 40 MG/10 ML VIAL INJ IV ONE (15:45)
[2022-06-17] MEDS ORDERED: LORazepam 2MG/ML-1ML VIAL IV PRN (15:45)
[2022-06-17] MEDS ORDERED: FOLIC ACID 1 MG in D5W 5% 50 ML INJ ONE (15:45)
[2022-06-17] MEDS ORDERED: THIAMINE 100mg/ml INJ (200mg/2ml VIAL) IV ONE (15:45)
[2022-06-17 16:40] VITALS: BP 148/87
[2022-06-17] MEDS: SENNA 8.6 MG TAB PO SCH (21:37)
[2022-06-17 22:06] VITALS: BP 132/85
[2022-06-18] MEDS: HYDROmorphone HCL 2 MG/ML VL/or syr IV PRN ×4 (02:41→20:44)
[2022-06-18 05:06] VITALS: BP 131/90
[2022-06-18] MEDS: SODIUM CHLORIDE 0.9% 1,000 ML IV SCH ×3 (07:45→18:27)
[2022-06-18 08:49] LABS: Basophils # (auto) 0 10 ^3/uL (0-0.2); Basophils % (auto) 0.5 % (0.0-2.0); Eosinophils # (auto) 0.3 10 ^3/uL (0-0.8); Eosinophils % (auto) 4.7 % (0.0-7.0); Hematocrit 40.4 % (41.0-53.0); Hemoglobin 13.5 g/dL (13.5-17.5); Lymphocytes % (auto) 33.1 % (10.0-50.0); Mean Corpuscular Hemoglobin 30.7 pg (28.0-32.0); Mean Corpuscular Hgb Conc. 33.4 g/dL (32.0-36.0); Mean Corpuscular Volume 91.9 fL (80.0-100.0); Monocytes # (auto) 0.7 10 ^3/uL (0-1.3); Monocytes % (auto) 11.5 % (0.0-12.0); Neutrophils % (auto) 50.2 % (37.0-80.0); Nucleated Red Blood Cells % 0.1 %; Red Blood Cells 4.39 10^6/uL (4.5-5.90); Red Cell Distribution Width 13.7 % (11.8-14.3)
[2022-06-18 09:15] VITALS: BP 142/100
[2022-06-18] MEDS: POLYETHYLENE GLYCOL 17 GM PWDR PO SCH (10:00)
[2022-06-18] MEDS: ONDANSETRON HCL 4 MG/2 ML VIAL IV PRN (10:13)
[2022-06-18] MEDS: PANTOPRAZOLE 40 MG/10 ML VIAL INJ IV SCH (10:13)
[2022-06-18] MEDS: THIAMINE 100mg/ml INJ (200mg/2ml VIAL) IV SCH (10:14)
[2022-06-18] MEDS: FOLIC ACID 1 MG in D5W 5% 50 ML INJ SCH (10:59)
[2022-06-18 12:52] VITALS: BP 135/89
[2022-06-18 16:57] VITALS: BP 126/89
[2022-06-18] MEDS: SENNA 8.6 MG TAB PO SCH (21:06)
[2022-06-18 22:00] VITALS: BP 136/92
[2022-06-19 04:30] VITALS: BP 141/89
[2022-06-19 07:15] LABS: Albumin 3.4 g/dL (3.4-5.0); Calcium 9.1 mg/dL (8.5-10.1); Potassium 4.6 mmol/L (3.5-5.1)
[2022-06-19 07:19] LABS: BUN/Creatinine Ratio 6.6; Bilirubin, Total 0.6 mg/dL (0.2-1.0); Total Protein 6.9 g/dL (6.4-8.2)
[2022-06-19 08:15] VITALS: BP 135/90
[2022-06-19] MEDS: FOLIC ACID 1 MG in D5W 5% 50 ML INJ SCH (08:27)
[2022-06-19] MEDS: PANTOPRAZOLE 40 MG/10 ML VIAL INJ IV SCH (08:28)
[2022-06-19] MEDS: THIAMINE 100mg/ml INJ (200mg/2ml VIAL) IV SCH (08:28)
[2022-06-19] MEDS: HYDROmorphone HCL 2 MG/ML VL/or syr IV PRN ×2 (08:57→22:20)
[2022-06-19 09:00] VITALS: BP 135/90
[2022-06-19] MEDS ORDERED: cefTRIAXone 1GM/50ML D5W 50 ML IV ONE (09:15)
[2022-06-19] MEDS: SODIUM CHLORIDE 0.9% 1,000 ML IV SCH ×3 (09:30→23:45)
[2022-06-19] MEDS: POLYETHYLENE GLYCOL 17 GM PWDR PO SCH (10:00)
[2022-06-19] MEDS: metroNIDAZOLE 500MG/100ML 100 ML IV SCH ×2 (11:19→22:21)
[2022-06-19 13:00] VITALS: BP 134/90
[2022-06-19 17:00] VITALS: BP 137/86
[2022-06-19] MEDS: SENNA 8.6 MG TAB PO SCH (22:00)
[2022-06-20 05:00] VITALS: BP 141/87
[2022-06-20] MEDS: metroNIDAZOLE 500MG/100ML 100 ML IV SCH (06:00)
[2022-06-20 06:45] LABS: Amylase 109 U/L (25-115); Lipase 694 U/L (73-393)
[2022-06-20] MEDS ORDERED: CLINIMIX PER PHARMACY 0 ML IV SCH (07:00)
[2022-06-20 07:40] LABS: Albumin 3.2 g/dL (3.4-5.0); BUN/Creatinine Ratio 7.1; Calcium 9.2 mg/dL (8.5-10.1); Magnesium 2.2 mg/dL (1.6-2.6); Potassium 3.9 mmol/L (3.5-5.1)
[2022-06-20 07:43] LABS: Bilirubin, Total 0.4 mg/dL (0.2-1.0); Phosphorus 3.8 mg/dL (2.5-4.90); Total Protein 7.3 g/dL (6.4-8.2)
[2022-06-20 08:43] VITALS: BP 117/74
[2022-06-20] MEDS ORDERED: cefTRIAXone 1GM/50ML D5W 50 ML IV SCH (09:00)
[2022-06-20] MEDS: SODIUM CHLORIDE 0.9% 1,000 ML IV SCH ×3 (09:59→23:45)
[2022-06-20] MEDS: POLYETHYLENE GLYCOL 17 GM PWDR PO SCH (10:00)
[2022-06-20] MEDS: FOLIC ACID 1 MG in D5W 5% 50 ML INJ SCH (10:02)
[2022-06-20] MEDS: PANTOPRAZOLE 40 MG/10 ML VIAL INJ IV SCH (10:04)
[2022-06-20] MEDS: THIAMINE 100mg/ml INJ (200mg/2ml VIAL) IV SCH (10:04)
[2022-06-20] MEDS: HYDROmorphone HCL 2 MG/ML VL/or syr IV PRN ×2 (12:04→21:32)
[2022-06-20 13:00] VITALS: BP 135/95
[2022-06-20 16:35] VITALS: BP 111/66
[2022-06-20 20:00] VITALS: BP 134/79
[2022-06-20] MEDS ORDERED: AMINO ACID INFUSION IN D10W 1,000 ML IV NR (20:00)
[2022-06-20] MEDS: SENNA 8.6 MG TAB PO SCH (21:32)
[2022-06-21 05:55] VITALS: BP 130/92
[2022-06-21] MEDS: SODIUM CHLORIDE 0.9% 1,000 ML IV SCH ×3 (07:45→23:45)
[2022-06-21 09:00] VITALS: BP 148/101
[2022-06-21] MEDS: POLYETHYLENE GLYCOL 17 GM PWDR PO SCH (09:53)
[2022-06-21 13:00] VITALS: BP 131/75
[2022-06-21 17:00] VITALS: BP 136/96
[2022-06-21] MEDS: SENNA 8.6 MG TAB PO SCH (22:00)
[2022-06-21] MEDS: HYDROmorphone HCL 2 MG/ML VL/or syr IV PRN (22:12)
[2022-06-21 23:39] VITALS: BP 147/89
[2022-06-22] MEDS: SODIUM CHLORIDE 0.9% 1,000 ML IV SCH (01:18)
[2022-06-22] MEDS: HYDROmorphone HCL 2 MG/ML VL/or syr IV PRN (03:04)
[2022-06-22 05:32] VITALS: BP 140/92
[2022-06-22 09:00] VITALS: BP 123/80
[2022-06-22] MEDS: POLYETHYLENE GLYCOL 17 GM PWDR PO SCH (09:52)
[2022-06-22 10:23] LABS: Albumin 3.3 g/dL (3.4-5.0); Calcium 8.8 mg/dL (8.5-10.1); Potassium 4.1 mmol/L (3.5-5.1)
[2022-06-22 10:28] LABS: BUN/Creatinine Ratio 5.8; Bilirubin, Total 0.5 mg/dL (0.2-1.0); Total Protein 6.9 g/dL (6.4-8.2)
[2022-06-22 10:49] LABS: Basophils # (auto) 0 10 ^3/uL (0-0.2); Basophils % (auto) 0.6 % (0.0-2.0); Eosinophils # (auto) 0.3 10 ^3/uL (0-0.8); Eosinophils % (auto) 4.3 % (0.0-7.0); Hematocrit 41.9 % (41.0-53.0); Hemoglobin 14.2 g/dL (13.5-17.5); Lymphocytes # (auto) 2.6 10 ^3/uL (0.4-5.4); Lymphocytes % (auto) 36.9 % (10.0-50.0); Mean Corpuscular Hemoglobin 30.6 pg (28.0-32.0); Mean Corpuscular Hgb Conc. 33.8 g/dL (32.0-36.0); Mean Corpuscular Volume 90.6 fL (80.0-100.0); Monocytes # (auto) 0.7 10 ^3/uL (0-1.3); Neutrophils # (auto) 3.4 10 ^3/uL (1.6-8.6); Neutrophils % (auto) 48.2 % (37.0-80.0); Nucleated Red Blood Cells % 0.3 %; Red Blood Cells 4.63 10^6/uL (4.5-5.90); Red Cell Distribution Width 13.4 % (11.8-14.3)
[2022-06-22 13:00] VITALS: BP 113/73
== END 2022-06-22 14:30 | disposition home or self-care (01) | DRG 282 ==
LOC: ER 22:35 → OVERFLOW 06-14 05:00 → WEST WING 06-14 17:42
PROVIDERS: ADMIT Nurse Practitioner; ATTEND Student in an Organized Health Care Education/Training Program
DX: K85.20 Alcohol induced acute pancreatitis without necrosis or infection (principal); E66.9 Obesity, unspecified; Z20.822 Contact with and (suspected) exposure to COVID-19; R74.8 Abnormal levels of other serum enzymes; Z68.34 Body mass index [BMI] 34.0-34.9, adult; Z82.49 Family history of ischemic heart disease and other diseases of the circulatory system; Z87.19 Personal history of other diseases of the digestive system
CPT/HCPCS: 36415; 74176; 76705; 80053; 81001; 82150; 83690; 83735; 84100; 85025; 86141; 87426; 96361; 96374; 96375; C9113; G0378; J0696; J2405; J3490; J7060

== ENCOUNTER 2023-02-03 05:44 | Inpatient (IN) | payer MEDICAID ==
[~2023-02-03] VITALS: Ht 182.9 cm; Wt 96.4 kg
[~2023-02-03 05:44] MED LIST changes: +FOLI-119 PO; -FOLI1TAB6 PO; +NALT50TA27 PO
[2023-02-03 07:00] LABS: Basophils # (auto) 0 10 ^3/uL (0-0.2); Basophils % (auto) 0.3 % (0.0-2.0); Eosinophils # (auto) 0.3 10 ^3/uL (0-0.8); Eosinophils % (auto) 3.2 % (0.0-7.0); Hematocrit 47.8 % (41.0-53.0); Hemoglobin 16.1 g/dL (13.5-17.5); Lymphocytes # (auto) 2.3 10 ^3/uL (0.4-5.4); Lymphocytes % (auto) 28.6 % (10.0-50.0); Mean Corpuscular Hemoglobin 30.6 pg (28.0-32.0); Mean Corpuscular Hgb Conc. 33.7 g/dL (32.0-36.0); Mean Corpuscular Volume 90.7 fL (80.0-100.0); Monocytes # (auto) 0.8 10 ^3/uL (0-1.3); Monocytes % (auto) 10.5 % (0.0-12.0); Neutrophils # (auto) 4.6 10 ^3/uL (1.6-8.6); Neutrophils % (auto) 57.4 % (37.0-80.0); Nucleated Red Blood Cells % 0.1 %; Red Blood Cells 5.27 10^6/uL (4.5-5.90); Red Cell Distribution Width 13.7 % (11.8-14.3); White Blood Cell 8.1 10^3/uL (4.4-10.8)
[2023-02-03 07:11] LABS: Alanine Aminotransferase 101 U/L (7-40); Albumin 4.7 g/dL (3.2-4.8); Alkaline Phosphatase 86 U/L (46-116); Anion Gap 9.8 (5-15); Aspartate Aminotransferase 67 U/L (13-40); BUN/Creatinine Ratio 9.7 (10.0-20.0); Blood Urea Nitrogen 10 mg/dL (9-23); Calcium 9.5 mg/dL (8.5-10.1); Carbon Dioxide 24.2 mmol/L (20-30); Chloride 104 mmol/L (98-107); Glucose 131 mg/dL (74-106); Lipase 157 U/L (12-53); Potassium 3.8 mmol/L (3.5-5.1); Sodium 138 mmol/L (136-145); Total Protein 7.6 g/dL (5.7-8.2)
[2023-02-03] MEDS ORDERED: cefTRIAXone 1GM/50ML D5W 50 ML IV ONE (09:45)
[2023-02-03] MEDS ORDERED: SODIUM CHLORIDE 0.9% 1,000 ML IV ONE ×2 (09:45)
[2023-02-03] MEDS ORDERED: THIAMINE 100mg/ml INJ (200mg/2ml VIAL) IV ONE (09:45)
[2023-02-03] MEDS ORDERED: metroNIDAZOLE 500MG/100ML 100 ML IV ONE (09:45)
[2023-02-03] MEDS: FOLIC ACID 1 MG TAB PO SCH (10:00)
[2023-02-03] MEDS ORDERED: ACETAMINOPHEN 325 MG TAB PO PRN (10:00)
[2023-02-03] MEDS: SODIUM CHLORIDE 0.9% 1,000 ML IV SCH ×3 (10:00→23:20)
[2023-02-03] MEDS ORDERED: ONDANSETRON HCL 4 MG/2 ML VIAL IV PRN (10:00)
[2023-02-03] MEDS ORDERED: KETOROLAC TROMETH 30 MG/ML 1ML VIAL IV ONE ×2 (10:00→10:15)
[2023-02-03] MEDS ORDERED: PANTOPRAZOLE 40 MG/10 ML VIAL INJ IV ONE (10:15)
[2023-02-03] MEDS: HYDROcodone-ACET 5/325MG TAB PO PRN ×2 (11:12→21:57)
[2023-02-03] MEDS: metroNIDAZOLE 500MG/100ML 100 ML IV SCH ×2 (14:44→22:18)
[2023-02-03 16:42] VITALS: PULSE 50; RESP 18; O2SAT 96
[2023-02-03 17:00] VITALS: BP 146/94; PULSE 50; RESP 18; TEMP 99; O2SAT 96
[2023-02-03] MEDS: HYDROmorphone HCL 2 MG/ML VL/or syr IV PRN ×2 (17:29→22:15)
[2023-02-03 18:00] LABS: Urine Bacteria FEW /hpf (None Seen); Urine Blood Negative /uL (Negative); Urine Clarity Clear (Clear); Urine Color Yellow (Yellow); Urine Mucus FEW (None Seen); Urine Protein, UAD TRACE (Negative); Urine Specific Gravity 1.022 (1.001-1.035); Urine Urobilinogen Normal (Negative); Urine WBC 36 /hpf (0 - 3)
[2023-02-03] MEDS ORDERED: KETOROLAC TROMETH 30 MG/ML 1ML VIAL IV PRN (18:00)
[2023-02-03 22:00] VITALS: BP 148/91; PULSE 53; RESP 16; TEMP 98.4; O2SAT 98
[2023-02-04] VITALS (8 sets, daily range): BP systolic 140–157; BP diastolic 87–98; PULSE 56–61; RESP 16–18; TEMP 97.5–98.4; O2SAT 96–100
[2023-02-04] MEDS: HYDROcodone-ACET 5/325MG TAB PO PRN (01:46)
[2023-02-04] MEDS: HYDROmorphone HCL 2 MG/ML VL/or syr IV PRN ×6 (02:18→22:55)
[2023-02-04 05:22] LABS: Basophils # (auto) 0 10 ^3/uL (0-0.2); Basophils % (auto) 0.1 % (0.0-2.0); Eosinophils # (auto) 0.1 10 ^3/uL (0-0.8); Eosinophils % (auto) 0.8 % (0.0-7.0); Hematocrit 44.9 % (41.0-53.0); Lymphocytes # (auto) 1.5 10 ^3/uL (0.4-5.4); Lymphocytes % (auto) 14.1 % (10.0-50.0); Mean Corpuscular Hemoglobin 30.6 pg (28.0-32.0); Mean Corpuscular Hgb Conc. 33.3 g/dL (32.0-36.0); Mean Corpuscular Volume 91.9 fL (80.0-100.0); Monocytes # (auto) 0.9 10 ^3/uL (0-1.3); Monocytes % (auto) 8.8 % (0.0-12.0); Neutrophils # (auto) 8.1 10 ^3/uL (1.6-8.6); Neutrophils % (auto) 76.2 % (37.0-80.0); Red Blood Cells 4.89 10^6/uL (4.5-5.90); Red Cell Distribution Width 13.6 % (11.8-14.3); White Blood Cell 10.7 10^3/uL (4.4-10.8)
[2023-02-04 05:42] LABS: Alanine Aminotransferase 75 U/L (7-40); Alkaline Phosphatase 85 U/L (46-116); Calcium 8.8 mg/dL (8.7-10.4); Carbon Dioxide 24.9 mmol/L (20-30); Chloride 105 mmol/L (98-107); Glucose 125 mg/dL (74-106); Lipase 453 U/L (12-53); Potassium 4.1 mmol/L (3.5-5.1); Sodium 135 mmol/L (136-145)
[2023-02-04 05:43] LABS: Albumin 4.3 g/dL (3.2-4.8); Anion Gap 5.1 (5-15); Aspartate Aminotransferase 34 U/L (13-40); BUN/Creatinine Ratio 7.2 (10.0-20.0); Blood Urea Nitrogen 7 mg/dL (9-23)
[2023-02-04 05:44] LABS: Bilirubin, Total 0.9 mg/dL (0.2-1.0)
[2023-02-04] MEDS: metroNIDAZOLE 500MG/100ML 100 ML IV SCH ×3 (06:32→21:39)
[2023-02-04] MEDS: SODIUM CHLORIDE 0.9% 1,000 ML IV SCH ×3 (06:33→21:38)
[2023-02-04] MEDS: cefTRIAXone 1GM/50ML D5W 50 ML IV SCH (08:19)
[2023-02-04] MEDS: PANTOPRAZOLE 40 MG/10 ML VIAL INJ IV SCH (09:37)
[2023-02-04] MEDS: THIAMINE 100mg/ml INJ (200mg/2ml VIAL) IV SCH (09:38)
[2023-02-04] MEDS: FOLIC ACID 1 MG TAB PO SCH (09:42)
[2023-02-04] MEDS: CHOLECALCIFEROL (VITD3) 2,000 UNIT CAP/TAB PO SCH (09:42)
[2023-02-05] VITALS (8 sets, daily range): BP systolic 133–146; BP diastolic 83–93; PULSE 59–80; RESP 14–21; TEMP 98–100.6; O2SAT 92–98
[2023-02-05] MEDS: SODIUM CHLORIDE 0.9% 1,000 ML IV SCH ×2 (02:00→05:53)
[2023-02-05] MEDS: HYDROmorphone HCL 2 MG/ML VL/or syr IV PRN ×5 (03:16→21:17)
[2023-02-05] MEDS: metroNIDAZOLE 500MG/100ML 100 ML IV SCH ×3 (05:53→21:16)
[2023-02-05] MEDS: cefTRIAXone 1GM/50ML D5W 50 ML IV SCH (09:10)
[2023-02-05] MEDS: THIAMINE 100mg/ml INJ (200mg/2ml VIAL) IV SCH (09:21)
[2023-02-05] MEDS: PANTOPRAZOLE 40 MG/10 ML VIAL INJ IV SCH (09:21)
[2023-02-05] MEDS ORDERED: D5W/SOD CHL 0.45% 1,000 ML IV ONE (09:30)
[2023-02-05] MEDS: FOLIC ACID 1 MG TAB PO SCH (10:00)
[2023-02-05] MEDS: CHOLECALCIFEROL (VITD3) 2,000 UNIT CAP/TAB PO SCH (10:00)
[2023-02-05] MEDS: D5W/SOD CHL 0.45% 1,000 ML IV SCH ×2 (17:46→23:55)
[2023-02-06] VITALS (7 sets, daily range): BP systolic 116–144; BP diastolic 76–92; PULSE 64–74; RESP 17–18; TEMP 98.8–99.5; O2SAT 95–96
[2023-02-06] MEDS: HYDROmorphone HCL 2 MG/ML VL/or syr IV PRN ×5 (01:25→22:21)
[2023-02-06] MEDS: metroNIDAZOLE 500MG/100ML 100 ML IV SCH ×3 (05:14→21:14)
[2023-02-06] MEDS: D5W/SOD CHL 0.45% 1,000 ML IV SCH ×3 (06:35→21:14)
[2023-02-06] MEDS ORDERED: LORazepam 2MG/ML-1ML VIAL IV PRN (07:30)
[2023-02-06] MEDS: cefTRIAXone 1GM/50ML D5W 50 ML IV SCH (08:37)
[2023-02-06] MEDS: THIAMINE 100mg/ml INJ (200mg/2ml VIAL) IV SCH (08:50)
[2023-02-06] MEDS: CHOLECALCIFEROL (VITD3) 2,000 UNIT CAP/TAB PO SCH (08:51)
[2023-02-06] MEDS: FOLIC ACID 1 MG TAB PO SCH (08:51)
[2023-02-06] MEDS: PANTOPRAZOLE 40 MG/10 ML VIAL INJ IV SCH (08:51)
[2023-02-06] MEDS: SUCRALFATE 1 GM/10 ML ORAL SUSP PO SCH ×2 (16:24→21:14)
[2023-02-07] MEDS: D5W/SOD CHL 0.45% 1,000 ML IV SCH ×4 (02:59→23:45)
[2023-02-07] MEDS: HYDROmorphone HCL 2 MG/ML VL/or syr IV PRN ×4 (02:59→21:19)
[2023-02-07 05:00] VITALS: BP 129/88; PULSE 62; RESP 17; TEMP 98.3; O2SAT 97
[2023-02-07] MEDS: metroNIDAZOLE 500MG/100ML 100 ML IV SCH (05:32)
[2023-02-07] MEDS: SUCRALFATE 1 GM/10 ML ORAL SUSP PO SCH ×4 (06:28→21:13)
[2023-02-07 08:00] VITALS: BP 135/77; PULSE 52; PULSE 58; RESP 15; RESP 16; TEMP 97.8; O2SAT 96
[2023-02-07] MEDS: PANTOPRAZOLE 40 MG/10 ML VIAL INJ IV SCH (08:44)
[2023-02-07] MEDS: cefTRIAXone 1GM/50ML D5W 50 ML IV SCH (08:44)
[2023-02-07] MEDS: CHOLECALCIFEROL (VITD3) 2,000 UNIT CAP/TAB PO SCH (08:45)
[2023-02-07] MEDS: FOLIC ACID 1 MG TAB PO SCH (08:45)
[2023-02-07] MEDS: THIAMINE 100mg/ml INJ (200mg/2ml VIAL) IV SCH (08:45)
[2023-02-07 13:00] VITALS: BP 122/67; PULSE 63; RESP 16; TEMP 98.4; O2SAT 96
[2023-02-07 16:24] VITALS: BP 128/95; PULSE 67; RESP 19; TEMP 98; O2SAT 95
[2023-02-07 20:00] VITALS: PULSE 73; RESP 17; O2SAT 96
[2023-02-07 22:00] VITALS: BP 136/89; PULSE 75; RESP 16; TEMP 98.2; O2SAT 97
[2023-02-08 05:00] VITALS: BP 124/81; PULSE 62; RESP 18; TEMP 98.1; O2SAT 100
[2023-02-08] MEDS: HYDROmorphone HCL 2 MG/ML VL/or syr IV PRN (05:29)
[2023-02-08 06:07] LABS: Anion Gap 5.6 (5-15); Carbon Dioxide 28.4 mmol/L (20-30); Chloride 106 mmol/L (98-107); Sodium 140 mmol/L (136-145)
[2023-02-08 06:08] LABS: Calcium 9.3 mg/dL (8.7-10.4)
[2023-02-08 06:13] LABS: Blood Urea Nitrogen 7 mg/dL (9-23); Glucose 129 mg/dL (74-106)
[2023-02-08] MEDS: SUCRALFATE 1 GM/10 ML ORAL SUSP PO SCH ×3 (06:25→16:55)
[2023-02-08 08:00] VITALS: BP 125/87; PULSE 58; RESP 17; RESP 18; TEMP 98.2; O2SAT 98
[2023-02-08] MEDS: CHOLECALCIFEROL (VITD3) 2,000 UNIT CAP/TAB PO SCH (09:45)
[2023-02-08] MEDS: D5W/SOD CHL 0.45% 1,000 ML IV SCH (09:45)
[2023-02-08] MEDS: FOLIC ACID 1 MG TAB PO SCH (09:45)
[2023-02-08] MEDS: cefTRIAXone 1GM/50ML D5W 50 ML IV SCH (09:45)
[2023-02-08] MEDS ORDERED: PANTOPRAZOLE 40 MG TAB PO SCH (10:00)
[2023-02-08] MEDS ORDERED: THIAMINE HCL 100 MG TAB PO SCH (10:00)
[2023-02-08 12:40] VITALS: BP 122/94; PULSE 59; RESP 18; TEMP 98.5; O2SAT 97
[2023-02-08] MEDS ORDERED: fentaNYL CITRATE 100 MCG/2 ML VL ONE (12:52)
[2023-02-08] MEDS ORDERED: MIDAZOLAM HCL 2MG/2ML 2ml VIAL (1mg/ml) ONE (12:52)
[2023-02-08] MEDS ORDERED: LIDOCAINE VISCOUS 2% 15ML UD ONE (13:09)
[2023-02-08] MEDS ORDERED: PROPOFOL 10 MG/ML 20 ML IV ONE (13:14)
[2023-02-08] MEDS ORDERED: DexAMETHasone SOD PHOS 10MG/1ML VIAL INJ ONE (13:14)
[2023-02-08] MEDS ORDERED: ONDANSETRON HCL 4 MG/2 ML VIAL IV PRN (13:15)
[2023-02-08] MEDS ORDERED: ePHEDrine SULFATE 50 MG/ML AMP IV PRN (13:15)
[2023-02-08] MEDS ORDERED: MIDAZOLAM HCL 2MG/2ML 2ml VIAL (1mg/ml) IV PRN (13:15)
[2023-02-08] MEDS ORDERED: HYDROmorphone HCL 2 MG/ML VL/or syr IV PRN (13:15)
[2023-02-08] MEDS ORDERED: MORPHINE SULFATE 4 MG/ML SYR/VIAL IV PRN (13:15)
[2023-02-08] MEDS ORDERED: LABETALOL HCL 5 MG/ML 4ML SYRINGE IV PRN (13:15)
[2023-02-08] MEDS ORDERED: PANT40TA2 PO (14:24)
[2023-02-08] MEDS ORDERED: METOCLOPRAMIDE HCL 5MG/ml INJ 2ml VIAL IV ONE (15:30)
[2023-02-08 16:30] VITALS: BP 130/94; PULSE 62; RESP 18; TEMP 98.1; O2SAT 99
[2023-02-08 18:18] VITALS: BP 125/87; PULSE 58; RESP 18; TEMP 98.2; O2SAT 98
== END 2023-02-08 19:15 | disposition home or self-care (01) | DRG 282 ==
LOC: ER 05:44 → OVERFLOW 10:03 → WEST WING 15:59
PROVIDERS: ADMIT Nurse Practitioner Family; ATTEND Nurse Practitioner Acute Care
PROC: 0DB68ZX Excision of Stomach, Via Natural or Artificial Opening Endoscopic, Diagnostic (ICD-10-PCS; 2023-02-08)
PROC: 0DB98ZX Excision of Duodenum, Via Natural or Artificial Opening Endoscopic, Diagnostic (ICD-10-PCS; principal; 2023-02-08 13:10)
DX: K85.20 Alcohol induced acute pancreatitis without necrosis or infection (principal); F10.20 Alcohol dependence, uncomplicated; K29.70 Gastritis, unspecified, without bleeding; K29.80 Duodenitis without bleeding; K31.84 Gastroparesis; N39.0 Urinary tract infection, site not specified
CPT/HCPCS: 36415; 43239; 74176; 80048; 80053; 81001; 83605; 83690; 85025; 87040; C9113; G0378; J0696; J1100; J1885; J2250; J2704; J3490

== ENCOUNTER 2023-12-18 14:30 | Inpatient (IN) | payer MEDICAID ==
[~2023-12-18] VITALS: Ht 182.9 cm; Wt 109.6 kg
[~2023-12-18 14:30] MED LIST changes: +PANT40TA2 PO
[2023-12-18 15:21] LABS: Urine Bacteria None Seen /hpf (None Seen)
[2023-12-18 15:43] LABS: Urine Blood Negative /uL (Negative); Urine Clarity Clear (Clear); Urine Color Yellow (Yellow); Urine Hyaline Cast FEW /lpf (0 - 2); Urine Mucus FEW (None Seen); Urine Protein, UAD TRACE (Negative); Urine Specific Gravity 1.028 (1.001-1.035); Urine Urobilinogen Normal (Negative); Urine WBC 8 /hpf (0 - 3)
[2023-12-18 15:55] LABS: Amphetamine Screen, Urine Neg (NEGATIVE); Barbiturate Scree,Urine Neg (NEGATIVE); Benzodiazephine Screen, Urine Neg (NEGATIVE); Cocaine Screen, Urine Neg (NEGATIVE); Opiate Scree,Urine Neg (NEGATIVE)
[2023-12-18 15:56] LABS: Cannabinoid Screen, Urine Neg (NEGATIVE); Phencyclidine Screen, Urine Neg (NEGATIVE)
[2023-12-18 16:02] LABS: Basophils # (auto) 0 10 ^3/uL (0-0.2); Basophils % (auto) 0.3 % (0.0-2.0); Eosinophils # (auto) 0.1 10 ^3/uL (0-0.8); Eosinophils % (auto) 1.2 % (0.0-7.0); Hematocrit 43.7 % (41.0-53.0); Hemoglobin 15.2 g/dL (13.5-17.5); Lymphocytes % (auto) 16.3 % (10.0-50.0); Mean Corpuscular Hemoglobin 31.1 pg (28.0-32.0); Mean Corpuscular Hgb Conc. 34.7 g/dL (32.0-36.0); Mean Corpuscular Volume 89.6 fL (80.0-100.0); Monocytes # (auto) 0.6 10 ^3/uL (0-1.3); Monocytes % (auto) 5.1 % (0.0-12.0); Neutrophils # (auto) 9.3 10 ^3/uL (1.6-8.6); Neutrophils % (auto) 77.1 % (37.0-80.0); Nucleated Red Blood Cells % 0.1 %; Red Blood Cells 4.87 10^6/uL (4.5-5.90); Red Cell Distribution Width 13.1 % (11.8-14.3); White Blood Cell 12.1 10^3/uL (4.4-10.8)
[2023-12-18 16:23] LABS: Alanine Aminotransferase 106 U/L (7-40); Albumin 4.8 g/dL (3.2-4.8); Alkaline Phosphatase 103 U/L (46-116); Anion Gap 9 (5-15); Aspartate Aminotransferase 54 U/L (13-40); BUN/Creatinine Ratio 13.3 (10.0-20.0); Blood Urea Nitrogen 13 mg/dL (9-23); Calcium 9.9 mg/dL (8.7-10.4); Carbon Dioxide 23 mmol/L (20-30); Chloride 105 mmol/L (98-107); Glucose 119 mg/dL (74-106); Lipase 127 U/L (12-53); Potassium 3.9 mmol/L (3.5-5.1); Sodium 137 mmol/L (136-145)
[2023-12-18 16:24] LABS: Bilirubin, Total 0.7 mg/dL (0.2-1.0); Total Protein 7.8 g/dL (5.7-8.2)
[2023-12-18] MEDS: KETOROLAC TROMETH 30 MG/ML 1ML VIAL IV ONE (18:43)
[2023-12-18] MEDS: SODIUM CHLORIDE 0.9% 1,000 ML IV ONE (18:44)
[2023-12-18] MEDS: PANTOPRAZOLE 40 MG/10 ML VIAL INJ IV ONE (19:39)
[2023-12-18] MEDS: cefTRIAXone 1GM/50ML D5W 50 ML IV ONE (19:39)
[2023-12-18] MEDS: SODIUM CHLORIDE 0.9% 1,000 ML IV SCH (19:40)
[2023-12-18] MEDS ORDERED: MORPHINE SULFATE INJ 2 MG/ml SYRG IV PRN (20:45)
[2023-12-18] MEDS ORDERED: NITROGLYCERIN 0.4 MG SL TAB SL PRN (20:45)
[2023-12-18] MEDS: IBUPROFEN 600 MG TAB PO PRN (23:40)
[2023-12-18] MEDS: MORPHINE SULFATE INJ 2 MG/ml SYRG IV PRN (23:41)
[2023-12-19 05:50] LABS: Basophils # (auto) 0 10 ^3/uL (0-0.2); Basophils % (auto) 0.3 % (0.0-2.0); Eosinophils # (auto) 0.1 10 ^3/uL (0-0.8); Eosinophils % (auto) 1.1 % (0.0-7.0); Hematocrit 40.6 % (41.0-53.0); Hemoglobin 14.1 g/dL (13.5-17.5); Lymphocytes # (auto) 1.6 10 ^3/uL (0.4-5.4); Lymphocytes % (auto) 15.4 % (10.0-50.0); Mean Corpuscular Hemoglobin 31.7 pg (28.0-32.0); Mean Corpuscular Hgb Conc. 34.8 g/dL (32.0-36.0); Mean Corpuscular Volume 91.1 fL (80.0-100.0); Monocytes # (auto) 0.7 10 ^3/uL (0-1.3); Monocytes % (auto) 7.3 % (0.0-12.0); Neutrophils # (auto) 7.7 10 ^3/uL (1.6-8.6); Neutrophils % (auto) 75.9 % (37.0-80.0); Red Blood Cells 4.46 10^6/uL (4.5-5.90); Red Cell Distribution Width 13.6 % (11.8-14.3); White Blood Cell 10.2 10^3/uL (4.4-10.8)
[2023-12-19 06:22] LABS: Alanine Aminotransferase 83 U/L (7-40); Albumin 4.5 g/dL (3.2-4.8); Alkaline Phosphatase 95 U/L (46-116); Anion Gap 8 (5-15); Aspartate Aminotransferase 31 U/L (13-40); BUN/Creatinine Ratio 13.8 (10.0-20.0); Blood Urea Nitrogen 13 mg/dL (9-23); Calcium 9.3 mg/dL (8.7-10.4); Carbon Dioxide 25 mmol/L (20-30); Chloride 106 mmol/L (98-107); Glucose 112 mg/dL (74-106); Sodium 139 mmol/L (136-145)
[2023-12-19 06:23] LABS: Bilirubin, Total 0.8 mg/dL (0.2-1.0); Total Protein 7.4 g/dL (5.7-8.2)
[2023-12-19] MEDS: cefTRIAXone 1GM/50ML D5W 50 ML IV SCH (09:30)
[2023-12-19] MEDS: ONDANSETRON HCL 4 MG/2 ML VIAL IV PRN (09:38)
[2023-12-19] MEDS: PANTOPRAZOLE 40 MG/10 ML VIAL INJ IV SCH (10:37)
[2023-12-19] MEDS: FOLIC ACID 1 MG in D5W 5% 50 ML INJ SCH (10:38)
[2023-12-19] MEDS: THIAMINE HCL 100 MG TAB PO SCH ×2 (10:38→21:33)
[2023-12-19 12:41] VITALS: PULSE 66; RESP 17; O2SAT 91
[2023-12-19] MEDS: THIAMINE HCL 100 MG TAB PO ONE (14:45)
[2023-12-19 18:54] LABS: Triglycerides 310 mg/dL (< 150)
[2023-12-19 18:55] LABS: Blood Alcohol < 3.0 mg/dL (<10); LDL Cholesterol 111 mg/dL (< 100)
[2023-12-19 18:56] LABS: Cholesterol 203 mg/dL (< 200); HDL Cholesterol 43 mg/dL (40-59)
[2023-12-19 21:00] VITALS: BP 131/88; PULSE 79; RESP 15; TEMP 98.6; O2SAT 95
[2023-12-20 01:00] VITALS: BP 138/83; PULSE 78; RESP 16; TEMP 99.7; O2SAT 95
[2023-12-20 05:00] VITALS: BP 110/72; PULSE 69; RESP 16; TEMP 98.4; O2SAT 98
[2023-12-20 06:25] LABS: Basophils # (auto) 0 10 ^3/uL (0-0.2); Basophils % (auto) 0.2 % (0.0-2.0); Eosinophils # (auto) 0.2 10 ^3/uL (0-0.8); Eosinophils % (auto) 2.2 % (0.0-7.0); Hematocrit 39.1 % (41.0-53.0); Hemoglobin 13.6 g/dL (13.5-17.5); Lymphocytes # (auto) 1.8 10 ^3/uL (0.4-5.4); Lymphocytes % (auto) 21.3 % (10.0-50.0); Mean Corpuscular Hemoglobin 31.2 pg (28.0-32.0); Mean Corpuscular Hgb Conc. 34.7 g/dL (32.0-36.0); Monocytes # (auto) 0.8 10 ^3/uL (0-1.3); Monocytes % (auto) 9.3 % (0.0-12.0); Neutrophils # (auto) 5.6 10 ^3/uL (1.6-8.6); Nucleated Red Blood Cells % 0.1 %; Red Blood Cells 4.35 10^6/uL (4.5-5.90); White Blood Cell 8.3 10^3/uL (4.4-10.8)
[2023-12-20 06:43] LABS: Alanine Aminotransferase 59 U/L (7-40); Albumin 4.2 g/dL (3.2-4.8); Alkaline Phosphatase 90 U/L (46-116); Anion Gap 10 (5-15); Aspartate Aminotransferase 21 U/L (13-40); BUN/Creatinine Ratio 10.9 (10.0-20.0); Blood Urea Nitrogen 10 mg/dL (9-23); Calcium 9.1 mg/dL (8.7-10.4); Carbon Dioxide 26 mmol/L (20-30); Chloride 104 mmol/L (98-107); Glucose 89 mg/dL (74-106); Lipase 102 U/L (12-53); Potassium 4.3 mmol/L (3.5-5.1); Sodium 140 mmol/L (136-145)
[2023-12-20 06:44] LABS: Total Protein 6.7 g/dL (5.7-8.2)
[2023-12-20 09:00] VITALS: BP 127/77; PULSE 77; RESP 18; TEMP 98.4; O2SAT 96
[2023-12-20 13:00] VITALS: BP 131/81; PULSE 75; RESP 18; TEMP 98; O2SAT 96
[2023-12-20 14:59] VITALS: TEMP 36.7
[2023-12-20 16:50] VITALS: BP 126/84; PULSE 72; RESP 16; TEMP 98; O2SAT 96
== END 2023-12-20 19:02 | disposition home or self-care (01) | DRG 282 ==
LOC: ER 14:34 → TELE 20:32 → OVERFLOW 22:00 → TELE-E-ADS 12-19 15:07
PROVIDERS: ADMIT Internal Medicine Pulmonary Disease; ATTEND Internal Medicine Pulmonary Disease
DX: K85.20 Alcohol induced acute pancreatitis without necrosis or infection (principal); E66.9 Obesity, unspecified; R74.01 Elevation of levels of liver transaminase levels; E78.5 Hyperlipidemia, unspecified; R74.8 Abnormal levels of other serum enzymes; I16.0 Hypertensive urgency; F10.20 Alcohol dependence, uncomplicated; Y90.9 Presence of alcohol in blood, level not specified; Z68.32 Body mass index [BMI] 32.0-32.9, adult; Z82.49 Family history of ischemic heart disease and other diseases of the circulatory system
CPT/HCPCS: 36415; 74176; 76705; 80053; 80061; 80307; 80320; 81001; 82607; 82962; 83605; 83690; 84484; 85025; 87081; 96365; 96366; 96375; G0378; J1885; J2405; J2470; J7060

== ENCOUNTER 2025-03-25 21:28 | Inpatient (IN) | payer MEDICAID ==
[~2025-03-25] VITALS: Ht 182.9 cm; Wt 100.6 kg
--- NOTE | 2025-03-25 22:16 | ED.PDOC ---
GI ASSESSMENT HPI Comments 34y M who presents to the ED for chief complaint of abdominal pain. Pt states he has been having epigastric abdominal pain since earlier this afternoon. Pt states the pain is constant, sharp in nature, non-radiating, with no associated exacerbating or relieving factors. Pt has associated nausea but denies any associated symptoms. Pt otherwise states he is daily drinker and states he has history of pancreatitis. Pt otherwise denies any other symptoms at this time. Chief Complaint: Abdominal Pain Time Seen by MD: 22:14 Primary Care Provider: unknown Reviewed Notes: Medications, Allergies Allergies: Coded Allergies: NO KNOWN ALLERGIES (Unverified , 07/26/21) Home Meds No Active Prescriptions or Reported Meds Information Source: Patient Mode of Arrival: Ambulatory Brought in by: self Timing: Hours Duration: Since onset Prehospital treatment: None Quality: Aching Past Medical History PAST MEDICAL HISTORY: Denies Surgical History: Denies all surgeries Family History Family History: Reviewed,noncontributory to illness, Family hx of HTN Social History Smoker: Non-Smoker Alcohol: Heavy Drugs: Denies Drug Use Lives In: Home Constitutional: denies: chills, diaphoresis, fatigue, fever, malaise, sweats, weakness, others EENTM: denies: blurred vision, double vision, ear bleeding, ear discharge, ear drainage, ear pain, ear ringing, eye pain, eye redness, hearing loss, mouth pain, mouth swelling, nasal discharge, nose bleeding, nose congestion, nose pain, photophobia, tearing, throat pain, throat swelling, voice changes, others Respiratory: denies: cough, hemoptysis, orthopnea, SOB at rest, shortness of breath, SOB with excertion, stridor, wheezing, others Cardiovascular: denies: chest pain, dizzy spells, diaphoresis, Dyspnea on exertion, edema, irregular heart beat, left arm pain, lightheadedness, palpitations, PND, syncope, others Gastrointestinal: reports: abdominal pain, nausea; denies: abdomen distended, blood streaked bowels, constipated, diarrhea, dysphagia, difficulty swallowing, hematemesis, melena, poor appetite, poor fluid intake, rectal bleeding, rectal pain, vomiting, others Genitourinary: denies: burning, dysuria, flank pain, frequency, hematuria, incontinence, penile discharge, penile sore, pain, testicle pain, testicle swelling, urgency, others Neurological: denies: dizziness, fainting, headache, left sided numbness, left sided weakness, numbness, paresthesia, pre-existing deficit, right sided numbness, right sided weakness, seizure, speech problems, tingling, tremors, weakness, others Musculoskeletal: denies: back pain, gout, joint pain, joint swelling, muscle pain, muscle stiffness, neck pain, others Integumetry: denies: bruises, change in color, change in hair/nails, dryness, laceration, lesions, lumps, rash, wounds, others Allergic/Immunocompromised: denies: Difficulty Healing, Frequent Infections, Hives, Itching, others Hematologic/Lymphatic: denies: anemia, blood clots, easy bleeding, easy bruising, swollen glands, others Endocrine: denies: excessive hunger, excessive sweating, excessive thirst, excessive urination, flushing, intolerance to cold, intolerance to heat, unexplained weight gain, unexplained weight loss, others Psychiatric: denies: anxiety, bipolar disorder, depression, hopeless, panic disorder, schizophrenia, sleepless, suicidal, others All Other Systems: Reviewed and Negative Physical Exam General Appearance: Moderate Distress, Normal HEENT: Normal ENT Inspection, Pharynx Normal, TMs Normal Neck: Full Range of Motion, Non-Tender, Normal, Normal Inspection Respiratory: Chest Non-Tender, Lungs Clear, No Accessory Muscle Use, No Respiratory Distress, Normal Breath Sounds Cardiovascular: No Edema, No JVD, No Murmur, No Gallop, Normal Peripheral Pulses, Regular Rate/Rhythm Breast Exam: Deferred Gastrointestinal: LUQ (Tender to palpation), No Organomegaly, Normal Bowel Sounds, Soft Genitalia: Deferred Pelvic: Deferred Rectal: Deferred Extremities: No calf tenderness, Normal capillary refill, Normal inspection, Normal range of motion, Non-tender, No pedal edema Musculoskeletal : Apperance: Normal Neurologic: Alert, asphalt roller operator II-XII nml as Tested, No Motor Deficits, Normal Affect, Normal Mood, No Sensory Deficits Cerebellar Function: Normal Reflexes: Normal Skin: Dry, Normal Color, Warm Lymphatic: No Adenopathy Was a procedure done? Was a procedure done?: No GI differential Dx Differential Diagnosis: Gastritis/PUD, Gastroenteritis, GI hemorrhage, Pancreatitis, Dehydration, Electrolyte Imbalance, Food Poisoning, Viral, Stress Ulcer, Kidney Stone X-Ray, Labs, Meds, VS Vital Signs Date Time Temp Pulse Resp B/P (MAP) Pulse Ox O2 Delivery O2 Flow Rate FiO2 03/25/25 21:29 97.6 67 20 152/117 100 97.6 Lab Test 03/25/25 22:23 Range/Units White Blood Count 13.1 H 4.4-10.8 10^3/uL Red Blood Count 5.36 4.5-5.90 10^6/uL Hemoglobin 16.1 13.5-17.5 g/dL Hematocrit 47.4 41.0-53.0 % Mean Corpuscular Volume 88.4 80.0-100.0 fL Mean Corpuscular Hemoglobin 30.1 28.0-32.0 pg Mean Corpuscular Hemoglobin Concent 34.0 32.0-36.0 g/dL Red Cell Distribution Width 14.7 H 11.8-14.3 % Platelet Count 436 140-450 10^3/uL Mean Platelet Volume 7.4 6.9-10.8 fL Neutrophils (%) (Auto) 80.9 H 37.0-80.0 % Lymphocytes (%) (Auto) 12.0 10.0-50.0 % Monocytes (%) (Auto) 6.5 0.0-12.0 % Eosinophils (%) (Auto) 0.4 0.0-7.0 % Basophils (%) (Auto) 0.2 0.0-2.0 % Neutrophils # (Auto) 10.6 H 1.6-8.6 10 ^3/uL Lymphocytes # (Auto) 1.6 0.4-5.4 10 ^3/uL Monocytes # (Auto) 0.8 0-1.3 10 ^3/uL Eosinophils # (Auto) 0 0-0.8 10 ^3/uL Basophils # (Auto) 0 0-0.2 10 ^3/uL Nucleated Red Blood Cells 0.0 % Sodium Level 140 136-145 mmol/L Potassium Level 5.1 3.5-5.1 mmol/L Chloride Level 101 98-107 mmol/L Carbon Dioxide Level 29 20-31 mmol/L Anion Gap 10 5-15 Blood Urea Nitrogen 8 L 9-23 mg/dL Creatinine 1.02 0.700-1.30 mg/dL Glomerular Filtration Rate Calc 98 >90 mL/min BUN/Creatinine Ratio 7.8 L 10.0-20.0 Serum Glucose 137 H 74-106 mg/dL Lactic Acid Level 1.9 0.4-2.0 mmol/L Calcium Level 9.9 8.7-10.4 mg/dL Total Bilirubin 1.0 0.2-1.0 mg/dL Aspartate Amino Transferase (AST) 26 13-40 U/L Alanine Aminotransferase (ALT) 43 H 7-40 U/L Alkaline Phosphatase 117 H 46-116 U/L Total Protein 8.1 5.7-8.2 g/dL Albumin 4.9 H 3.2-4.8 g/dL Lipase 397 H 12-53 U/L X-Ray, Labs, Meds, VS Comment CT abdomen pelvis: Shows acute pancreatitis Patient will be admitted for acute pancreatitis Patient started on Rocephin 1 g and started on normal saline bolus Given Zofran 4 mg for nausea Time of 1ST Reevaluation: 22:45 Reevaluation 1ST: Unchanged Patient Education/Counseling: Diagnosis, Treatment, Need For Follow Up Family Education/Counseling: No Family Present SEPSIS Sepsis Screen Date sepsis recognized/suspect: Mar 25, 2025 Time Sepsis recognized/suspect: 2131 Recent Procedure: No On Antibiotic Therapy: No Respiratory Rate >20: No Heart Rate >90: No Temp<36 C (96.8 F) or >38.3 C: No SBP <90 or MAP <65 mmHG: No New Acute Mental Status Change: No Is the patient on CPAP, BIPAP,: No Physician Orders Ct Ab Pel Wo Con-No Oral Or Iv (03/25/25 22:18) Ceftriaxone Sodium (Rocephin) (03/25/25 23:45) Sodium Chloride 0.9% (03/25/25 23:45) Ondansetron Hcl (Zofran) (03/25/25 23:45) Ketorolac Injection (Toradol Injection) (03/25/25 23:45) Vital Signs Date Time Temp Pulse Resp B/P (MAP) Pulse Ox O2 Delivery O2 Flow Rate FiO2 03/25/25 21:29 97.6 67 20 152/117 100 97.6 Laboratory Tests Test 03/25/25 22:23 Lactic Acid Level 1.9 mmol/L (0.4-2.0) White Blood Count 13.1 10^3/uL (4.4-10.8) H Departure 1 Departure Time of Disposition: 23:42 Impression: Primary Impression: Acute pancreatitis Qualified Codes: K85.20 - Alcohol induced acute pancreatitis without necrosis or infection Disposition: ADMITTED INPATIENT Condition: Stable e-Prescriptions No Active Prescriptions or Reported Meds Discharged With: Self Critical Care Note Critical Care Time?: No Stability Stability form required: No Heart Score Heart Score: Heart Score Response (Comments) Value History N/A 0 EKG N/A 0 Age N/A 0 Risk Factors N/A 0 Troponin N/A 0 Total 0 I personally scribed for ALMA ROSA WHALEN (INDIRA) on 03/25/25 at 22:16. Electronically submitted by Arcelia WILLAMS). ALMA ROSA WHALEN Mar 25, 2025 22:16
[2025-03-25 22:35] LABS: Hematocrit 47.4 % (41.0-53.0); Hemoglobin 16.1 g/dL (13.5-17.5); Mean Corpuscular Hemoglobin 30.1 pg (28.0-32.0); Mean Corpuscular Volume 88.4 fL (80.0-100.0); Nucleated Red Blood Cells % 0.0 %
[2025-03-25 22:51] LABS: Anion Gap 10 (5-15); BUN/Creatinine Ratio 7.8 (10.0-20.0); Bilirubin, Total 1.0 mg/dL (0.2-1.0); Calcium 9.9 mg/dL (8.7-10.4); Carbon Dioxide 29 mmol/L (20-31); Chloride 101 mmol/L (98-107); Potassium 5.1 mmol/L (3.5-5.1); Sodium 140 mmol/L (136-145); Total Protein 8.1 g/dL (5.7-8.2)
[2025-03-25 22:57] LABS: Alanine Aminotransferase 43 U/L (7-40); Albumin 4.9 g/dL (3.2-4.8); Alkaline Phosphatase 117 U/L (46-116); Blood Urea Nitrogen 8 mg/dL (9-23); Glucose 137 mg/dL (74-106)
[2025-03-25 23:16] LABS: Lipase 397 U/L (12-53)
--- NOTE | 2025-03-25 23:18 | DVH ---
CLINICAL HISTORY: abd pain TECHNIQUE: CT of the abdomen and pelvis was performed without IV contrast. This exam was performed ac cording to our departmental dose optimization program. Up-to-date CT equipment and radiation dose red uction techniques are utilized as appropriate. CTDI 9 DLP 508 COMPARISON: CT CT AB PEL WO CON-NO ORAL OR IV on DOS: 12/18/23, CT CT AB PEL WO CON-NO ORAL OR IV on D OS: 02/03/23, CT ABD PELVIS WO CONTRAST on DOS: 06/13/22, CT ABD PELVIS WO CONTRAST on DOS: 03/30/22, CT ABD PELVIS WO CONTRAST on DOS: 09/01/21 FINDINGS: Abdomen/Pelvis: The spleen, adrenal glands, kidneys, gallbladder, bladder, and prostate gland are grossly unremarkabl e. There is moderate peripancreatic inflammatory change and a trace amount of peripancreatic fluid. There is diffuse hepatic steatosis. The abdominal aorta is normal in course and caliber. There are no significant atherosclerotic calcifi cations. There is no free intraperitoneal air. There is trace Nonspecific free fluid in the deep pelvis. There is no enlarged abdominal pelvic lymph node. There is no bowel wall thickening or dilatation. The appendix is normal. Other: The imaged lower thorax is unremarkable. No acute osseous abnormality is evident. Impression: Acute pancreatitis. Diffuse hepatic steatosis.
[2025-03-25] MEDS ORDERED: ONDANSETRON HCL 4 MG/2 ML VIAL IV ONE (23:45)
[2025-03-25] MEDS ORDERED: cefTRIAXone SOD 1,000 MG VL IM ONE (23:45)
[2025-03-26] VITALS (10 sets, daily range): BP systolic 136–146; BP diastolic 78–108; PULSE 50–78; RESP 16–18; TEMP 97.6–98.5; O2SAT 96–100
[2025-03-26] MEDS: KETOROLAC TROMETH 30 MG/ML 1ML VIAL IM ONE (00:30)
[2025-03-26] MEDS: SODIUM CHLORIDE 0.9% 1,000 ML IV ONE ×2 (00:45→02:30)
[2025-03-26] MEDS: KETOROLAC TROMETH 30 MG/ML 1ML VIAL IV PRN (02:23)
[2025-03-26] MEDS: PANTOPRAZOLE 40 MG/10 ML VIAL INJ IV ONE (02:26)
[2025-03-26] MEDS: ONDANSETRON HCL 4 MG/2 ML VIAL IV PRN (04:17)
[2025-03-26] MEDS: HYDROmorphone HCL 2 MG/ML VL/or syr IV ONE (04:17)
--- NOTE | 2025-03-26 04:21 | DVHHP2 ---
History of Present Illness Reason for Visit: Abdominal pain History of Present Illness 34-year-old male presents for evaluation of abdominal pain. Patient reports a one day history of sharp epigastric abdominal pain with associated nausea. He reports being a daily alcoholic drinker and having a history of pancreatitis. No fever or chills. No other acute complaints reported. Past Medical History ETOH abuse, pancreatitis Past Surgical History Denies Family History Noncontributory Smoke: No ALCOHOL: heavy Drugs: None Lives: with Family Review of Systems Review of Systems Review of systems are currently negative otherwise addressed in HPI. Allergies: Coded Allergies: NO KNOWN ALLERGIES (Unverified , 07/26/21) Medications Current Medications Medications Dose Ordered Sig/Taina Route Start Time Stop Time Status Last Admin Dose Admin Pantoprazole Sodium 40 mg DAILY IV 03/26/25 10:00 Ondansetron HCl 4 mg Q4HP PRN IV 03/26/25 00:45 Ketorolac Tromethamine 15 mg Q6HPRN PRN IV 03/26/25 00:45 03/31/25 00:44 03/26/25 02:23 15 MG Exam Vital Signs Vital Signs Date Time Temp Pulse Resp B/P (MAP) Pulse Ox O2 Delivery O2 Flow Rate FiO2 03/26/25 02:36 97.6 50 16 140/101 (114) 100 97.6 03/26/25 00:17 Room Air* 0 21 Exam Gen: 34-year-old male in mild distress Skin: Warm, dry, normal color and texture, no rash. HEENT: Normocephalic atraumatic, mucous membranes moist and pink. Neck: Cervical and supraclavicular nodes normal without enlargement, trachea is midline, thyroid gland is normal without masses. Pulmonary: Clear to auscultation and percussion bilaterally. Cardiac: Regular rate and rhythm. No murmur Abdomen: Soft, epigastric tenderness, nondistended, bowel sounds present all 4 quadrants, no guarding, no rigidity, no organomegaly. Extremities: No cyanosis, clubbing, no edema Neuro: Cranial nerves II through XII grossly intact, normal affect and speech, no focal motor deficits. Labs/Xrays ORDERING PHYSICIAN: ALMA ROSA WHALEN PROCEDURE(s): ABPL - CT AB PEL WO CON-NO ORAL OR IV REASON: abd pain ORDER NUMBER(s): [id number], ACCESSION NUMBER(s): [id number] CLINICAL HISTORY: abd pain TECHNIQUE: CT of the abdomen and pelvis was performed without IV contrast. This exam was performed according to our departmental dose optimization program. Up-to-date CT equipment and radiation dose reduction techniques are utilized as appropriate. CTDI 9 DLP 508 COMPARISON: CT CT AB PEL WO CON-NO ORAL OR IV on DOS: 12/18/23, CT CT AB PEL WO CON-NO ORAL OR IV on DOS: 02/03/23, CT ABD PELVIS WO CONTRAST on DOS: 06/13/22, CT ABD PELVIS WO CONTRAST on DOS: 03/30/22, CT ABD PELVIS WO CONTRAST on DOS: 09/01/21 FINDINGS: Abdomen/Pelvis: The spleen, adrenal glands, kidneys, gallbladder, bladder, and prostate gland are grossly unremarkable. There is moderate peripancreatic inflammatory change and a trace amount of peripancreatic fluid. There is diffuse hepatic steatosis. The abdominal aorta is normal in course and caliber. There are no significant atherosclerotic calcifications. There is no free intraperitoneal air. There is trace Nonspecific free fluid in the deep pelvis. There is no enlarged abdominal pelvic lymph node. There is no bowel wall thickening or dilatation. The appendix is normal. Other: The imaged lower thorax is unremarkable. No acute osseous abnormality is evident. Impression: Acute pancreatitis. Diffuse hepatic steatosis. Labs Test 03/25/25 22:23 Range/Units White Blood Count 13.1 H 4.4-10.8 10^3/uL Red Blood Count 5.36 4.5-5.90 10^6/uL Hemoglobin 16.1 13.5-17.5 g/dL Hematocrit 47.4 41.0-53.0 % Mean Corpuscular Volume 88.4 80.0-100.0 fL Mean Corpuscular Hemoglobin 30.1 28.0-32.0 pg Mean Corpuscular Hemoglobin Concent 34.0 32.0-36.0 g/dL Red Cell Distribution Width 14.7 H 11.8-14.3 % Platelet Count 436 140-450 10^3/uL Mean Platelet Volume 7.4 6.9-10.8 fL Neutrophils (%) (Auto) 80.9 H 37.0-80.0 % Lymphocytes (%) (Auto) 12.0 10.0-50.0 % Monocytes (%) (Auto) 6.5 0.0-12.0 % Eosinophils (%) (Auto) 0.4 0.0-7.0 % Basophils (%) (Auto) 0.2 0.0-2.0 % Neutrophils # (Auto) 10.6 H 1.6-8.6 10 ^3/uL Lymphocytes # (Auto) 1.6 0.4-5.4 10 ^3/uL Monocytes # (Auto) 0.8 0-1.3 10 ^3/uL Eosinophils # (Auto) 0 0-0.8 10 ^3/uL Basophils # (Auto) 0 0-0.2 10 ^3/uL Nucleated Red Blood Cells 0.0 % Sodium Level 140 136-145 mmol/L Potassium Level 5.1 3.5-5.1 mmol/L Chloride Level 101 98-107 mmol/L Carbon Dioxide Level 29 20-31 mmol/L Anion Gap 10 5-15 Blood Urea Nitrogen 8 L 9-23 mg/dL Creatinine 1.02 0.700-1.30 mg/dL Glomerular Filtration Rate Calc 98 >90 mL/min BUN/Creatinine Ratio 7.8 L 10.0-20.0 Serum Glucose 137 H 74-106 mg/dL Lactic Acid Level 1.9 0.4-2.0 mmol/L Calcium Level 9.9 8.7-10.4 mg/dL Total Bilirubin 1.0 0.2-1.0 mg/dL Aspartate Amino Transferase (AST) 26 13-40 U/L Alanine Aminotransferase (ALT) 43 H 7-40 U/L Alkaline Phosphatase 117 H 46-116 U/L Total Protein 8.1 5.7-8.2 g/dL Albumin 4.9 H 3.2-4.8 g/dL Lipase 397 H 12-53 U/L SEPSIS Sepsis Screen Date sepsis recognized/suspect: Mar 25, 2025 Time Sepsis recognized/suspect: 2131 Recent Procedure: No On Antibiotic Therapy: No Respiratory Rate >20: No Heart Rate >90: No Temp<36 C (96.8 F) or >38.3 C: No SBP <90 or MAP <65 mmHG: No New Acute Mental Status Change: No Is the patient on CPAP, BIPAP,: No Physician Orders Ct Ab Pel Wo Con-No Oral Or Iv (10/28/25 22:18) Admit (03/25/25 23:54) Sodium Chloride 0.9% (03/26/25 00:45) Pantoprazole (Protonix) (03/26/25 10:00) * Gi Dvh Defensive Driving Instructor (03/26/25 00:35) Ondansetron Hcl (Zofran) (03/26/25 00:45) Complete Blood Count (03/27/25 04:00) Comprehensive Metabolic Panel (03/27/25 04:00) Npo (Nothing By Mouth) Diet (03/26/25 Breakfast) Condition: Stable (03/26/25 00:35) Bedrest With Bathroom Privileg (03/26/25 00:35) Ketorolac Injection (Toradol Injection) (03/26/25 00:45) Vital Signs Date Time Temp Pulse Resp B/P (MAP) Pulse Ox O2 Delivery O2 Flow Rate FiO2 03/26/25 02:36 97.6 50 16 140/101 (114) 100 97.6 03/26/25 00:17 98.1 62 18 150/88 (108) 100 98.1 03/26/25 00:17 62 18 100 Room Air* 0 21 03/25/25 21:29 97.6 67 20 152/117 100 97.6 Laboratory Tests Test 03/25/25 22:23 Lactic Acid Level 1.9 mmol/L (0.4-2.0) White Blood Count 13.1 10^3/uL (4.4-10.8) H Medications Medications Dose Ordered Sig/Taina Route Start Time Stop Time Status Last Admin Dose Admin Ketorolac Tromethamine 15 mg Q6HPRN PRN IV 03/26/25 00:45 03/31/25 00:44 03/26/25 02:23 15 MG Ketorolac Tromethamine 30 mg ONCE ONCE IM 03/25/25 23:45 03/26/25 00:11 DC 03/26/25 00:30 30 MG Pantoprazole Sodium 40 mg ONCE ONCE IV 03/26/25 00:45 03/26/25 00:46 DC 03/26/25 02:26 40 MG Sodium Chloride 1,000 ml @ 1,000 mls/hr Q1H ONCE IV 03/25/25 23:45 03/26/25 00:44 DC 03/26/25 02:30 1,000 MLS/HR Assessment/Plan Assessment/Plan Assessment Acute abdominal pain Acute pancreatitis Alcohol abuse Plan Admit the patient to [facility] to the hospitalist GI consult NPO Pain management Maintenance IV fluids Continue treatment per orders. Plan discussed with: Patient My Orders Orders - SEBLE MORIN Procedure Category Date Status Time Admit ADMIT 03/25/25 Transmitted 23:54 Sodium Chloride 0.9% PHA 03/26/25 In Process 00:45 Pantoprazole PHA 03/26/25 In Process (Protonix) 10:00 * Gi Dvh Defensive Driving Instructor CONS 03/26/25 Transmitted 00:35 Ondansetron Hcl PHA 03/26/25 In Process (Zofran) 00:45 Complete Blood Count LAB 03/27/25 Verified 04:00 Comprehensive LAB 03/27/25 Verified Metabolic Panel 04:00 Npo (Nothing By DIET 03/26/25 Transmitted Mouth) Diet Breakfast Condition: Stable EDA 03/26/25 In Process 00:35 Bedrest With Bathroom EDA 03/26/25 In Process Privileg 00:35 Ketorolac Injection PHA 03/26/25 In Process (Toradol Injection) 00:45 Date of Service: Mar 25, 2025 Billing Provider: SEBLE MORIN Common Visit Codes: [id number] INP/OBS CARE (MOD) SEBLE MORIN Mar 26, 2025 04:21
[2025-03-26] MEDS: PANTOPRAZOLE 40 MG/10 ML VIAL INJ IV SCH (08:22)
[2025-03-26] MEDS ORDERED: ACETAMINOPHEN 325 MG TAB PO PRN (13:15)
[2025-03-26] MEDS: HYDROmorphone HCL 2 MG/ML VL/or syr IV PRN (13:32)
--- NOTE | 2025-03-26 13:41 | DVHPN2 ---
Reviewed: H&P Changes from previous H/P or p: No Changes General: Per HPI Objective Vitals Vital Signs Date Time Temp Pulse Resp B/P (MAP) Pulse Ox O2 Delivery O2 Flow Rate FiO2 03/26/25 13:32 68 17 145/78 03/26/25 08:00 98.2 97 98.2 03/26/25 08:00 Room Air* 0 21 Intake/Output Intake and Output 03/26/25 07:00 Intake Total 1000 ml Balance 1000 ml Intake Oral 0 ml IV Total 1000 ml Exam Gen: 34-year-old male in mild distress Skin: Warm, dry, normal color and texture, no rash. HEENT: Normocephalic atraumatic, mucous membranes moist and pink. Neck: Cervical and supraclavicular nodes normal without enlargement, trachea is midline, thyroid gland is normal without masses. Pulmonary: Clear to auscultation and percussion bilaterally. Cardiac: Regular rate and rhythm. No murmur Abdomen: Soft, epigastric tenderness, nondistended, bowel sounds present all 4 quadrants, no guarding, no rigidity, no organomegaly. Extremities: No cyanosis, clubbing, no edema Neuro: Cranial nerves II through XII grossly intact, normal affect and speech, no focal motor deficits. Medications Current Medications Medications Dose Ordered Sig/Taina Route Start Time Stop Time Status Last Admin Dose Admin Pantoprazole Sodium 40 mg DAILY IV 03/26/25 10:00 03/26/25 08:22 40 MG Ondansetron HCl 4 mg Q4HP PRN IV 03/26/25 00:45 03/26/25 04:17 4 MG Acetaminophen 650 mg Q6HP PRN PO 03/26/25 13:15 Acetaminophen/ Hydrocodone Bitart 1 tab Q6HP PRN PO 03/26/25 13:15 Hydromorphone HCl 0.5 mg Q4HPRN PRN IV 03/26/25 13:15 03/26/25 13:32 0.5 MG Laboratory Results Laboratory Tests 03/25/25 22:23 Chemistry Test 03/25/25 22:23 Albumin 4.9 g/dL (3.2-4.8) H Calcium Level 9.9 mg/dL (8.7-10.4) Total Protein 8.1 g/dL (5.7-8.2) Lipid panel Test 03/25/25 22:23 Lipase 397 U/L (12-53) H LFT Test 03/25/25 22:23 Alanine Aminotransferase (ALT) 43 U/L (7-40) H Alkaline Phosphatase 117 U/L (46-116) H Aspartate Amino Transferase (AST) 26 U/L (13-40) Total Bilirubin 1.0 mg/dL (0.2-1.0) Labs and/or images reviewed: Labs reviewed by me, Image(s) reviewed by me Assessment/Plan Assessment/Plan 34-year-old male presents for evaluation of abdominal pain. Patient reports a one day history of sharp epigastric abdominal pain with associated nausea. He reports being a daily alcoholic drinker and having a history of pancreatitis. No fever or chills. No other acute complaints reported. Past Medical History ETOH abuse, pancreatitis 03/26: Alcohol pancreatitis, we will use Tylenol/Epworth/Dilaudid for pain control, LFTs are stable, liver function looks intact. We will continue fluids, patient got 1 L bolus on admit with ceftriaxone, we will give 0.5 L NS more and then continue 125 cc continuous. Patient has not urinated. Bladder scan,. If patient continues to not make any urine and bladder scan negative, we will get bladder ultrasound, low threshold for Nephrology consult. Patient does not have any history of alcohol withdrawal, we will start 100 mg thiamine daily, 1 mg folic daily, and continue monitoring thereafter. Diagnosis: Acute alcoholic pancreatitis Alcohol binge disorder Chronic alcohol dependence Plan: IV fluids 125 cc continuous Bolus prn fluids Prn analgesia Bladder scan prn We will threshold for Nephrology consult [facility] protocol 100 mg thiamine daily 1 mg folic daily Med surge Full code Plan discussed with: Patient My Orders Orders - AURE NICHOLS MD Procedure Category Date Status Time Acetaminophen Tablet PHA 03/26/25 In Process (Tylenol Tablet) 13:15 Hydrocodone-Acet PHA 03/26/25 In Process 10/325mg Tab (Epworth 13:15 Hydromorphone PHA 03/26/25 In Process Injection (Dilaudid 13:15 Date of Service: Mar 26, 2025 Billing Provider: AURE NICHOLS MD Common Visit Codes: [id number] INP/OBS CARE(HIGH) AURE NICHOLS MD Mar 26, 2025 13:41
[2025-03-26] MEDS: SODIUM CHLORIDE 0.9% 500 ML IV ONE (14:00)
[2025-03-26] MEDS: THIAMINE 100mg/ml INJ (200mg/2ml VIAL) IV ONE (15:56)
[2025-03-26] MEDS: HYDROcodone-ACET 10/325MG TAB PO PRN (16:04)
--- NOTE | 2025-03-26 17:53 | DVHCONRES ---
Date Seen: Mar 26, 2025 Resident Creating Document: JHAJJ,SARPUNEET RESIDENT Referring Physician SERAFIN Thomas Reason for Consultation pancreatitis History of Present Illness Patient is a 34-year-old male with no significant past medical history presented to the hospital with a chief complaint of abdominal pain that began few hours before he came to the hospital. Patient reported he returned home from work and started to have abdominal pain in the upper abdomen including the left upper quadrant and the epigastrium, radiating to the back along his flanks. Patient denies nausea, vomiting, diarrhea or constipation. He reports to be drinking alcohol including 2 [place] and rum everyday. Last drink was a day before the pain started. Patient reported he had a similar episode of abdominal pain earlier this year when he was apparently diagnosed with pancreatitis. Past Medical History No significant medical history Past Surgical History No significant surgical history Family History: Hypertension G8 FATHER Family History None Social History Denies smoking, drug use but heavy alcohol use Allergies: Coded Allergies: NO KNOWN ALLERGIES (Unverified , 07/26/21) Home Meds No Active Prescriptions or Reported Meds Current Medications Current Medications Medications (Trade) Dose Ordered Sig/Taina Route PRN Reason Start Time Stop Time Status Last Admin Pantoprazole Sodium (Protonix) 40 mg DAILY IV 03/26/25 10:00 03/26/25 08:22 Ondansetron HCl (Zofran) 4 mg Q4HP PRN IV NAUSEA / VOMITING 03/26/25 00:45 03/26/25 04:17 Ketorolac Tromethamine (Toradol Injection) 15 mg Q6HPRN PRN IV SEVERE PAIN (7-10 PAIN SCALE) 03/26/25 00:45 03/26/25 13:13 DC 03/26/25 08:23 Acetaminophen (Tylenol Tablet) 650 mg Q6HP PRN PO PAIN SCALE 1-3 OR TEMP>100.4 03/26/25 13:15 Acetaminophen/ Hydrocodone Bitart ([place] 10/325MG Tab) 1 tab Q6HP PRN PO MODERATE PAIN (4-6 PAIN SCALE) 03/26/25 13:15 03/26/25 16:04 Hydromorphone HCl (Dilaudid Injection) 0.5 mg Q4HPRN PRN IV SEVERE PAIN (7-10 PAIN SCALE) 03/26/25 13:15 03/26/25 13:32 Folic Acid 1 mg DAILY PO 03/27/25 10:00 Thiamine HCl 100 mg DAILY PO 03/27/25 10:00 Review of Systems Patient seen and examined at bedside Denies nausea, vomiting Abdominal pain has improved significantly and the patient wants to try liquids Vital Signs Vital Signs Date Time Temp Pulse Resp B/P (MAP) Pulse Ox O2 Delivery O2 Flow Rate FiO2 03/26/25 13:32 68 17 145/78 03/26/25 13:00 98.3 97 98.3 03/26/25 08:00 Room Air* 0 21 Physical Exam Gen - no pallor, no scleral icterus Skin - Patients skin is warm and dry. HEENT - normocephalic, atraumatic, dry mucous membranes. Neck - supple, no lymphadenopathy Pulmonary - B/L equal air entry with vesicular breath sounds cardiovascular - regular S1,S2 heard GI - soft abdomen with [id number] tenderness to palpation in the LUQ and the epigastrium. Bowel sounds normoactive. Neurological - Patient is alert and oriented x4. No motor or sensory weakness Labs/Diagnostic Data Labs Test 03/25/25 22:23 Range/Units White Blood Count 13.1 H 4.4-10.8 10^3/uL Red Blood Count 5.36 4.5-5.90 10^6/uL Hemoglobin 16.1 13.5-17.5 g/dL Hematocrit 47.4 41.0-53.0 % Mean Corpuscular Volume 88.4 80.0-100.0 fL Mean Corpuscular Hemoglobin 30.1 28.0-32.0 pg Mean Corpuscular Hemoglobin Concent 34.0 32.0-36.0 g/dL Red Cell Distribution Width 14.7 H 11.8-14.3 % Platelet Count 436 140-450 10^3/uL Mean Platelet Volume 7.4 6.9-10.8 fL Neutrophils (%) (Auto) 80.9 H 37.0-80.0 % Lymphocytes (%) (Auto) 12.0 10.0-50.0 % Monocytes (%) (Auto) 6.5 0.0-12.0 % Eosinophils (%) (Auto) 0.4 0.0-7.0 % Basophils (%) (Auto) 0.2 0.0-2.0 % Neutrophils # (Auto) 10.6 H 1.6-8.6 10 ^3/uL Lymphocytes # (Auto) 1.6 0.4-5.4 10 ^3/uL Monocytes # (Auto) 0.8 0-1.3 10 ^3/uL Eosinophils # (Auto) 0 0-0.8 10 ^3/uL Basophils # (Auto) 0 0-0.2 10 ^3/uL Nucleated Red Blood Cells 0.0 % Sodium Level 140 136-145 mmol/L Potassium Level 5.1 3.5-5.1 mmol/L Chloride Level 101 98-107 mmol/L Carbon Dioxide Level 29 20-31 mmol/L Anion Gap 10 5-15 Blood Urea Nitrogen 8 L 9-23 mg/dL Creatinine 1.02 0.700-1.30 mg/dL Glomerular Filtration Rate Calc 98 >90 mL/min BUN/Creatinine Ratio 7.8 L 10.0-20.0 Serum Glucose 137 H 74-106 mg/dL Lactic Acid Level 1.9 0.4-2.0 mmol/L Calcium Level 9.9 8.7-10.4 mg/dL Total Bilirubin 1.0 0.2-1.0 mg/dL Aspartate Amino Transferase (AST) 26 13-40 U/L Alanine Aminotransferase (ALT) 43 H 7-40 U/L Alkaline Phosphatase 117 H 46-116 U/L Total Protein 8.1 5.7-8.2 g/dL Albumin 4.9 H 3.2-4.8 g/dL Lipase 397 H 12-53 U/L Assessment Assessment Acute intractable abdominal pain Acute pancreatitis Heavy alcohol use Transaminitis Diffuse hepatic steatosis Plan - IV fluids - pain medications as needed - started on clear liquid diet, monitor for symptoms of abdominal pain and worsening nausea vomiting, if worsen put the patient NPO - monitor CBC BMP - counseled on cessation of alcohol use Plan discussed with Dr. Blackman Plan discussed with: Patient, Other (BRIAN Alexis) LEA SINGH RESIDENT Mar 26, 2025 17:53
[2025-03-27 01:00] VITALS: BP 140/93; PULSE 65; RESP 18; TEMP 98.7; O2SAT 99
[2025-03-27 05:00] VITALS: BP 128/85; PULSE 61; RESP 18; O2SAT 97
[2025-03-27 06:23] LABS: Hematocrit 41.2 % (41.0-53.0); Hemoglobin 14.1 g/dL (13.5-17.5); Mean Corpuscular Hemoglobin 30.9 pg (28.0-32.0); Mean Corpuscular Volume 90.1 fL (80.0-100.0); Nucleated Red Blood Cells % 0.0 %
[2025-03-27 06:42] LABS: Alanine Aminotransferase 27 U/L (7-40); Albumin 4.2 g/dL (3.2-4.8); Alkaline Phosphatase 93 U/L (46-116); Anion Gap 10 (5-15); BUN/Creatinine Ratio 8.3 (10.0-20.0); Bilirubin, Total 0.9 mg/dL (0.2-1.0); Calcium 9.1 mg/dL (8.7-10.4); Carbon Dioxide 28 mmol/L (20-31); Chloride 103 mmol/L (98-107); Glucose 94 mg/dL (74-106); Potassium 4.2 mmol/L (3.5-5.1); Sodium 141 mmol/L (136-145); Total Protein 6.9 g/dL (5.7-8.2)
[2025-03-27 06:46] LABS: Blood Urea Nitrogen 8 mg/dL (9-23)
[2025-03-27 08:00] VITALS: PULSE 71; RESP 17; O2SAT 96
[2025-03-27 09:00] VITALS: BP 124/87; PULSE 71; RESP 17; TEMP 98.6; O2SAT 96
[2025-03-27] MEDS: FOLIC ACID 1 MG TAB PO SCH (09:24)
[2025-03-27] MEDS: THIAMINE HCL 100 MG TAB PO SCH (09:24)
[2025-03-27] MEDS ORDERED: ZOFR4T PO (14:49)
[2025-03-27 15:30] VITALS: BP 129/83; PULSE 55; RESP 17; TEMP 98.4; O2SAT 96
--- NOTE | 2025-03-28 11:07 | DVHPN2 ---
Reviewed: H&P Changes from previous H/P or p: No Changes General: Per HPI Objective Vitals Vital Signs Date Time Temp Pulse Resp B/P (MAP) Pulse Ox O2 Delivery O2 Flow Rate FiO2 03/27/25 08:00 71 17 96 Room Air* 0 21 03/27/25 05:00 128/85 (99) 03/27/25 01:00 98.7 98.7 Intake/Output Intake and Output 03/27/25 07:00 Intake Total 1200 ml Balance 1200 ml Intake Oral 1200 ml # Voids 4 Exam Gen: 34-year-old male in mild distress Skin: Warm, dry, normal color and texture, no rash. HEENT: Normocephalic atraumatic, mucous membranes moist and pink. Neck: Cervical and supraclavicular nodes normal without enlargement, trachea is midline, thyroid gland is normal without masses. Pulmonary: Clear to auscultation and percussion bilaterally. Cardiac: Regular rate and rhythm. No murmur Abdomen: Soft, epigastric tenderness, nondistended, bowel sounds present all 4 quadrants, no guarding, no rigidity, no organomegaly. Extremities: No cyanosis, clubbing, no edema Neuro: Cranial nerves II through XII grossly intact, normal affect and speech, no focal motor deficits. Medications Current Medications Medications Dose Ordered Sig/Taina Route Start Time Stop Time Status Last Admin Dose Admin Pantoprazole Sodium 40 mg DAILY IV 03/26/25 10:00 03/27/25 09:24 40 MG Ondansetron HCl 4 mg Q4HP PRN IV 03/26/25 00:45 03/27/25 01:01 4 MG Acetaminophen 650 mg Q6HP PRN PO 03/26/25 13:15 Acetaminophen/ Hydrocodone Bitart 1 tab Q6HP PRN PO 03/26/25 13:15 03/27/25 05:07 1 TAB Hydromorphone HCl 0.5 mg Q4HPRN PRN IV 03/26/25 13:15 03/27/25 01:02 0.5 MG Folic Acid 1 mg DAILY PO 03/27/25 10:00 03/27/25 09:24 1 MG Thiamine HCl 100 mg DAILY PO 03/27/25 10:00 03/27/25 09:24 100 MG Laboratory Results Laboratory Tests 03/27/25 05:27 Chemistry Test 03/27/25 05:27 Albumin 4.2 g/dL (3.2-4.8) Calcium Level 9.1 mg/dL (8.7-10.4) Total Protein 6.9 g/dL (5.7-8.2) Lipid panel Test 03/27/25 05:27 Lipase Pending Triglycerides Level 236 mg/dL (< 150) H LFT Test 03/27/25 05:27 Alanine Aminotransferase (ALT) 27 U/L (7-40) Alkaline Phosphatase 93 U/L (46-116) Aspartate Amino Transferase (AST) 18 U/L (13-40) Total Bilirubin 0.9 mg/dL (0.2-1.0) Labs and/or images reviewed: Labs reviewed by me, Image(s) reviewed by me Assessment/Plan Assessment/Plan 34-year-old male presents for evaluation of abdominal pain. Patient reports a one day history of sharp epigastric abdominal pain with associated nausea. He reports being a daily alcoholic drinker and having a history of pancreatitis. No fever or chills. No other acute complaints reported. Past Medical History ETOH abuse, pancreatitis 03/26: Alcohol pancreatitis, we will use Tylenol/[place]/Dilaudid for pain control, LFTs are stable, liver function looks intact. We will continue fluids, patient got 1 L bolus on admit with ceftriaxone, we will give 0.5 L NS more and then continue 125 cc continuous. Patient has not urinated. Bladder scan,. If patient continues to not make any urine and bladder scan negative, we will get bladder ultrasound, low threshold for Nephrology consult. Patient does not have any history of alcohol withdrawal, we will start 100 mg thiamine daily, 1 mg folic daily, and continue monitoring thereafter. 03/27: Patient improving, pain improving. Bowel sounds present, abdomen mildly tender. We will advance diet today, if tolerating possible discharge today. Diagnosis: Acute alcoholic pancreatitis Alcohol binge disorder Chronic alcohol dependence Plan: IV fluids 125 cc continuous Bolus prn fluids Prn analgesia Bladder scan prn We will threshold for Nephrology consult [facility] protocol 100 mg thiamine daily 1 mg folic daily Med surge Full code Plan discussed with: Patient My Orders Orders - AURE NICHOLS MD Procedure Category Date Status Time Acetaminophen Tablet PHA 03/26/25 In Process (Tylenol Tablet) 13:15 Hydrocodone-Acet PHA 03/26/25 In Process 10/325mg Tab ([place] 13:15 Hydromorphone PHA 03/26/25 In Process Injection (Dilaudid 13:15 Folic Acid Tablet PHA 03/27/25 In Process 10:00 Thiamine Tab PHA 03/27/25 In Process 10:00 Date of Service: Mar 27, 2025 Billing Provider: AURE NICHOLS MD Common Visit Codes: [id number] INP/OBS CARE(HIGH) AURE NICHOLS MD Mar 27, 2025 10:50
--- NOTE | 2025-03-28 11:11 | DVHPN2 ---
Progress Note Date Seen: Mar 27, 2025 Resident Creating Document: LEA SINGH RESIDENT Medical Necessity Reason Pt with a Central, PICC or Fol: No Subjective Review of Systems Seen and examined at the bedside Reports abdominal pain is better, tolerating clear liquid diet well and wants to try thickened liquids We will put him on full liquid diet Objective vital signs Vital Sign Date Time Temp Pulse Resp B/P (MAP) Pulse Ox O2 Delivery O2 Flow Rate FiO2 03/27/25 09:00 98.6 71 17 124/87 (99) 96 98.6 03/27/25 08:00 Room Air* 0 21 Total Intake and Output 03/26/25 03/26/25 03/27/25 15:00 23:00 07:00 Intake Total 1200 ml Balance 1200 ml medications Current Medications Medications Dose Ordered Sig/Taina Route Start Time Stop Time Status Last Admin Dose Admin Pantoprazole Sodium 40 mg DAILY IV 03/26/25 10:00 03/27/25 09:24 40 MG Ondansetron HCl 4 mg Q4HP PRN IV 03/26/25 00:45 03/27/25 01:01 4 MG Acetaminophen 650 mg Q6HP PRN PO 03/26/25 13:15 Acetaminophen/ Hydrocodone Bitart 1 tab Q6HP PRN PO 03/26/25 13:15 03/27/25 05:07 1 TAB Hydromorphone HCl 0.5 mg Q4HPRN PRN IV 03/26/25 13:15 03/27/25 01:02 0.5 MG Folic Acid 1 mg DAILY PO 03/27/25 10:00 03/27/25 09:24 1 MG Thiamine HCl 100 mg DAILY PO 03/27/25 10:00 03/27/25 09:24 100 MG Examination Gen - no pallor, no scleral icterus Skin - Patients skin is warm and dry. HEENT - normocephalic, atraumatic, dry mucous membranes. Neck - supple, no lymphadenopathy Pulmonary - B/L clear breath sounds cardiovascular - regular S1,S2 heard GI - soft abdomen with mild tenderness to palpation in the LUQ and the epigastrium. Bowel sounds normoactive. Neurological - Patient is alert and oriented x4. No motor or sensory weakness laboratory and microbiology Laboratory Tests 03/27/25 05:27 Test 03/27/25 05:27 Range/Units Serum Glucose 94 74-106 mg/dL Problem List/Assessment/Plan Problem List/Assessment/Plan Acute intractable abdominal pain Acute pancreatitis Heavy alcohol use Transaminitis Diffuse hepatic steatosis Plan - IV fluids - pain medications as needed - tolerated clear liquid diet well, advanced to full liquids - counseled on cessation of alcohol use Plan discussed with Dr. Blackman Plan discussed with: Patient, Other (BRIAN Alexis) LEA SINGH RESIDENT Mar 27, 2025 12:35
--- NOTE | 2025-03-28 11:16 | DVHDS2 ---
Discharge Summary Date of Admission Mar 25, 2025 at 23:54 Date of Discharge: Mar 27, 2025 Labs/Diagnostic Data: Laboratory Results Test 03/27/25 05:27 03/25/25 22:23 White Blood Count 8.3 10^3/uL (4.4-10.8) Red Blood Count 4.58 10^6/uL (4.5-5.90) Hemoglobin 14.1 g/dL (13.5-17.5) Hematocrit 41.2 % (41.0-53.0) Mean Corpuscular Volume 90.1 fL (80.0-100.0) Mean Corpuscular Hemoglobin 30.9 pg (28.0-32.0) Mean Corpuscular Hemoglobin Concent 34.2 g/dL (32.0-36.0) Red Cell Distribution Width 14.6 % (11.8-14.3) Platelet Count 342 10^3/uL (140-450) Mean Platelet Volume 7.6 fL (6.9-10.8) Neutrophils (%) (Auto) 64.7 % (37.0-80.0) Lymphocytes (%) (Auto) 23.2 % (10.0-50.0) Monocytes (%) (Auto) 9.6 % (0.0-12.0) Eosinophils (%) (Auto) 2.4 % (0.0-7.0) Basophils (%) (Auto) 0.1 % (0.0-2.0) Neutrophils # (Auto) 5.3 10 ^3/uL (1.6-8.6) Lymphocytes # (Auto) 1.9 10 ^3/uL (0.4-5.4) Monocytes # (Auto) 0.8 10 ^3/uL (0-1.3) Eosinophils # (Auto) 0.2 10 ^3/uL (0-0.8) Basophils # (Auto) 0 10 ^3/uL (0-0.2) Nucleated Red Blood Cells 0.0 % Sodium Level 141 mmol/L (136-145) Potassium Level 4.2 mmol/L (3.5-5.1) Chloride Level 103 mmol/L (98-107) Carbon Dioxide Level 28 mmol/L (20-31) Anion Gap 10 (5-15) Blood Urea Nitrogen 8 mg/dL (9-23) Creatinine 0.96 mg/dL (0.700-1.30) Glomerular Filtration Rate Calc 105 mL/min (>90) BUN/Creatinine Ratio 8.3 (10.0-20.0) Serum Glucose 94 mg/dL (74-106) Calcium Level 9.1 mg/dL (8.7-10.4) Total Bilirubin 0.9 mg/dL (0.2-1.0) Aspartate Amino Transferase (AST) 18 U/L (13-40) Alanine Aminotransferase (ALT) 27 U/L (7-40) Alkaline Phosphatase 93 U/L (46-116) Total Protein 6.9 g/dL (5.7-8.2) Albumin 4.2 g/dL (3.2-4.8) Triglycerides Level 236 mg/dL (< 150) Lipase 257 U/L (12-53) Lactic Acid Level 1.9 mmol/L (0.4-2.0) Other Laboratory Tests 03/27/25 05:27 Brief Hx & Hospital Course: 34-year-old male presents for evaluation of abdominal pain. Patient reports a one day history of sharp epigastric abdominal pain with associated nausea. He reports being a daily alcoholic drinker and having a history of pancreatitis. No fever or chills. No other acute complaints reported. Past Medical History ETOH abuse, pancreatitis 03/26: Alcohol pancreatitis, we will use Tylenol/[place]/Dilaudid for pain control, LFTs are stable, liver function looks intact. We will continue fluids, patient got 1 L bolus on admit with ceftriaxone, we will give 0.5 L NS more and then continue 125 cc continuous. Patient has not urinated. Bladder scan,. If patient continues to not make any urine and bladder scan negative, we will get bladder ultrasound, low threshold for Nephrology consult. Patient does not have any history of alcohol withdrawal, we will start 100 mg thiamine daily, 1 mg folic daily, and continue monitoring thereafter. 03/27: Patient improving, pain improving. Bowel sounds present, abdomen mildly tender. We will advance diet today, if tolerating possible discharge today. - tolerating p.o. well, stable for discharge. Diagnosis: Acute alcoholic pancreatitis Alcohol binge disorder Chronic alcohol dependence Leukocytosis, resolved Neutrophilia, resolved plan: - avoid alcohol -Continue regular diet -Full liquid diet for 3 days -As needed Zofran 4 mg ODT as needed for maximum of 3 times a day - fopr pain meds take, 1st line Tylenol, second-line ibuprofen -continue other home medication -follow up with PCP to review discharge Condition at Discharge: Fair Final Diagnosis/Problems List Acute alcoholic pancreatitis Alcohol binge disorder Chronic alcohol dependence Leukocytosis, resolved Neutrophilia, resolved Discharge Disposition: Home Discharge Instruct/Medications No Active Prescriptions or Reported Meds Discharge Statement: "Patient was advised to return to the ER or call 911 if any headaches, dizziness, shortness of breath, chest pain, abdominal pain, bleeding, fevers, or worsening of medical condition. Patient was counseled about treatment plan, medications, possible side effects, patientverbalized understanding. All questions were answered to the best of my ability. This discharge took greater then 30 minutes in planning, reviewing documentation, counseling the patient, and discussing with other team members." ASSESSMENT ASSESSMENT Assessment Date of Service: Mar 27, 2025 Billing Provider: AURE NICHOLS MD Common Visit Codes: [id number] DISCH DAY >30min AURE NICHOLS MD Mar 27, 2025 14:51
== END 2025-03-27 16:39 | disposition home or self-care (01) | DRG 282 ==
LOC: ER 21:28 → OVERFLOW 23:54 → EAST 03-26 01:08
PROVIDERS: ADMIT Student in an Organized Health Care Education/Training Program; ATTEND Student in an Organized Health Care Education/Training Program
DX: K85.20 Alcohol induced acute pancreatitis without necrosis or infection (principal); F10.20 Alcohol dependence, uncomplicated; K76.0 Fatty (change of) liver, not elsewhere classified; R74.01 Elevation of levels of liver transaminase levels; Z79.899 Other long term (current) drug therapy; Y90.9 Presence of alcohol in blood, level not specified
CPT/HCPCS: 36415; 74176; 80053; 83605; 83690; 84478; 85025; 96374; G0378; J1885; J2405; J2470